=== PATIENT | male | born 1990 | race Caucasian/White ===

== ENCOUNTER 2021-04-17 21:48 | Emergency (ER) | payer OTHER, SELFPAY ==
--- NOTE | ~2021-04-17 | CT_ITS ---
EXAMINATION: CT ABDOMEN AND PELVIS WITHOUT CONTRAST CLINICAL INFORMATION: Left flank pain, question stone COMPARISON: 03/10/2017 TECHNIQUE: Multidetector volumetric imaging was performed from the superior aspect of the liver through the pubic symphysis. Sagittal and coronal reformatted images were obtained on the technologist's workstation. This CT examination was performed using dose optimization techniques as appropriate, variously including the following: *Automated exposure control *Adjustment of mA and/or kV according to patient size (this includes techniques or standardized protocols for targeted exams where dose is matched to indication/reason for exam; i.e. extremities or head) *Use of iterative reconstruction technique DLP: 366 mGy-cm FINDINGS: LUNG BASES: The visualized lung bases are unremarkable. LIVER, GALLBLADDER, AND BILIARY TREE: The liver is normal in size, shape, and attenuation. No focal hepatic lesion or biliary ductal dilatation is present. The gallbladder is unremarkable with no evidence of radiopaque gallstones, gallbladder wall thickening, or obvious pericholecystic inflammatory changes. PANCREAS: Unremarkable. SPLEEN: Unremarkable. ADRENAL GLANDS: Unremarkable. KIDNEYS AND URETERS: The kidneys are normal in size, shape, and attenuation. Left extrarenal pelvis is noted. No significant hydronephrosis. No obstructing calculi seen. No perinephric stranding. BLADDER: Unremarkable. GASTROINTESTINAL TRACT: No evidence of bowel obstruction or significant wall thickening. The appendix is unremarkable. No free fluid or free air is seen. ABDOMINAL WALL: No significant hernia is appreciated. LYMPH NODES: No lymphadenopathy is seen, though assessment is limited in the absence of intravenous contrast. VASCULAR: Unremarkable. PELVIC VISCERA: Unremarkable. OSSEOUS STRUCTURES: Unremarkable. CT/CT abdomen pelvis wo con IMPRESSION: No acute findings identified in the abdomen/pelvis. No obstructing calculus identified. Fleischner guidelines were followed.
[2021-04-17 21:55] VITALS: BP 156/85; PULSE 106; RESP 22; TEMP 36.7; O2SAT 99; BMI 25.0
--- NOTE | 2021-04-17 23:03 | ED_ITS ---
HPI - Back Pain/Injury General Chief Complaint: Back Pain/Injury Stated Complaint: flank pain Time Seen by Provider: 04/17/21 23:03 Source: patient Mode of arrival: ambulatory Limitations: no limitations History of Present Illness HPI Narrative: Patient diabetic with history of chronic back pain and abdominal pain comes here for increased pain for last 2 days patient in the left flank no fever no chills noticed blood sugar was on the higher side around 300 nauseated no vomiting no fever or chills no hematuria patient denies any substance abuse Related Data Allergies Allergy/AdvReac Type Severity Reaction Status Date / Time No Known Allergies Allergy Verified 04/17/21 21:55 Review of Systems Review of Systems: Yes all other systems are reviewed and are negative [facility] Social History Social History Advance Directives: No Advance Directives Information Provided: Yes Physical Exam Vital Signs: Vital Signs: Last Vital Signs Temp 98 F 04/18/21 01:12 Pulse 76 04/18/21 01:12 Resp 18 04/18/21 01:12 BP 140/82 H 04/18/21 01:12 Pulse Ox 97 04/18/21 01:12 BMI result Body Mass Index 25.0 Appearance: Alert. Oriented X3. In moderate distress anxious Eyes: No pallor/ icterus ENT: Pharynx normal. Oral Mucosa moist Neck: Normal inspection. Neck supple. CVS: Normal heart rate and rhythm. Pulses normal. Respiratory: No respiratory distress. Equal air entry bilateral, no wheezing/ rales/rhonchi Abdomen: Soft and nontender. Bowel sounds are present, diffuse tenderness left flank tenderness+ no rebound tenderness or guarding Skin: Skin warm and dry. Normal skin color. Normal skin turgor. Extremities: No lower extremity edema. No calf tenderness Neuro: Oriented X 3. MDM - Back Pain/Injury MDM Narrative Medical decision making narrative: Patient with chronic abdominal pain likely from gastroparesis diabetes along with he follows a kidney specialist details not available creatinine was elevated patient was given IV fluids CT scan was negative no ketoacidosis patient advised to follow with data analysis intern next week and advised to drink plenty of fluids and time of discharge patient feeling much better Lab Data Attestation: I reviewed the patient's lab results. Result diagrams: 04/18/21 00:42 04/18/21 00:42 Labs: Lab Results 04/18/21 04/18/21 04/18/21 Range/Units 00:37 00:37 00:42 WBC 8.1 (4.8-10.8) X10*3/uL RBC 4.00 L (4.60-5.80) X10*6/uL Hgb 11.4 L (14.0-18.0) g/dl Hct 34.4 L (42.0-52.0) % MCV 86.0 (80.0-98.0) fL MCH 28.5 (27.0-33.0) pg MCHC 33.1 (31.0-36.0) g/dl RDW 13.2 (11.0-16.0) % Plt Count 202 (160-400) X10*3/uL MPV 10.1 (9.4-12.4) fL Immature Gran % (Auto) 0.2 (0.0-0.4) % Neut % (Auto) 73.3 H (45-73) % Lymph % (Auto) 20.6 (20-40) % [place] % (Auto) 5.5 (2-11) % Eos % (Auto) 0.2 (0-4) % Baso % (Auto) 0.2 (0-2) % Lymph # (Auto) 1.7 (1.2-4.9) X10*3/uL [place] # (Auto) 0.5 (0.1-1.2) X10*3/uL Eos # (Auto) 0.0 (0.0-0.4) X10*3/uL Baso # (Auto) 0.0 (0.0-0.2) X10*3/uL Abs Immat Gran (auto) 0.02 (0.00-0.03) X10*3/uL Absolute Neuts (auto) 5.9 (2.0-8.3) x10*3/uL Absolute Nucleated RBC 0.000 (0.0-0.012) X10*3/uL Nucleated RBC % (auto) 0.0 (0.0-0.2) /100WBC Sodium (135-145) mmol/L Potassium (3.3-5.1) mmol/L Chloride (96-108) mmol/L Carbon Dioxide (22-29) mmol/L Anion Gap (12-20) BUN (9-16) mg/dL Creatinine (0.5-1.4) mg/dL Estim Creat Clear Calc Estimated GFR Random Glucose (60-115) mg/dL Calcium (8.4-10.2) mg/dL Total Bilirubin (0.0-1.0) mg/dL AST (5-37) U/L ALT (0-40) U/L Alkaline Phosphatase (39-117) U/L Total Protein (6.5-8.0) g/dL Albumin (3.5-5.0) g/dL Lipase (8-78) U/L Urine Color YELLOW Urine Appearance CLEAR Urine pH 5.5 (5.0-8.0) Ur Specific [place] >= 1.030 H (1.005-1.025) Urine Protein 2+ H (NEG-TRACE) MG/DL Urine Glucose (UA) >=1000 H (NEG) MG/DL Urine Ketones 15 (NEG) MG/DL Urine Blood 2+ H (NEG) Urine Nitrite NEG (NEG) Ur Leukocyte Esterase NEG (NEG) Urine RBC 1-4 (0) /HPF Urine WBC 1-4 (0-4) /HPF Ur Squamous Epith Cells 2+ /LPF Amorphous Sediment 1+ /LPF Urine Bacteria TRACE /LPF Urine Mucus 2+ /LPF Urine Opiates Screen POSITIVE H (Not Detect) Urine Fentanyl Screen Not Detected (Not Detect) Ur Barbiturates Screen Not Detected (Not Detect) Ur Phencyclidine Scrn Not Detected (Not Detect) Ur Amphetamines Screen Not Detected (Not Detect) U Benzodiazepines Scrn Not Detected (Not Detect) Urine Cocaine Screen Not Detected (Not Detect) U Marijuana (THC) Screen POSITIVE H (Not Detect) Acetone, Qual (Negative) 04/18/21 Range/Units 00:42 WBC (4.8-10.8) X10*3/uL RBC (4.60-5.80) X10*6/uL Hgb (14.0-18.0) g/dl Hct (42.0-52.0) % MCV (80.0-98.0) fL MCH (27.0-33.0) pg MCHC (31.0-36.0) g/dl RDW (11.0-16.0) % Plt Count (160-400) X10*3/uL MPV (9.4-12.4) fL Immature Gran % (Auto) (0.0-0.4) % Neut % (Auto) (45-73) % Lymph % (Auto) (20-40) % [place] % (Auto) (2-11) % Eos % (Auto) (0-4) % Baso % (Auto) (0-2) % Lymph # (Auto) (1.2-4.9) X10*3/uL [place] # (Auto) (0.1-1.2) X10*3/uL Eos # (Auto) (0.0-0.4) X10*3/uL Baso # (Auto) (0.0-0.2) X10*3/uL Abs Immat Gran (auto) (0.00-0.03) X10*3/uL Absolute Neuts (auto) (2.0-8.3) x10*3/uL Absolute Nucleated RBC (0.0-0.012) X10*3/uL Nucleated RBC % (auto) (0.0-0.2) /100WBC Sodium 140 (135-145) mmol/L Potassium 3.6 (3.3-5.1) mmol/L Chloride 103 (96-108) mmol/L Carbon Dioxide 26 (22-29) mmol/L Anion Gap 15 (12-20) BUN 24 H (9-16) mg/dL Creatinine 1.80 H (0.5-1.4) mg/dL Estim Creat Clear Calc 52.6 Estimated GFR 45 Random Glucose 142 H (60-115) mg/dL Calcium 9.5 (8.4-10.2) mg/dL Total Bilirubin 0.4 (0.0-1.0) mg/dL AST 19 (5-37) U/L ALT 14 (0-40) U/L Alkaline Phosphatase 99 (39-117) U/L Total Protein 7.3 (6.5-8.0) g/dL Albumin 4.3 (3.5-5.0) g/dL Lipase 12 (8-78) U/L Urine Color Urine Appearance Urine pH (5.0-8.0) Ur Specific [place] (1.005-1.025) Urine Protein (NEG-TRACE) MG/DL Urine Glucose (UA) (NEG) MG/DL Urine Ketones (NEG) MG/DL Urine Blood (NEG) Urine Nitrite (NEG) Ur Leukocyte Esterase (NEG) Urine RBC (0) /HPF Urine WBC (0-4) /HPF Ur Squamous Epith Cells /LPF Amorphous Sediment /LPF Urine Bacteria /LPF Urine Mucus /LPF Urine Opiates Screen (Not Detect) Urine Fentanyl Screen (Not Detect) Ur Barbiturates Screen (Not Detect) Ur Phencyclidine Scrn (Not Detect) Ur Amphetamines Screen (Not Detect) U Benzodiazepines Scrn (Not Detect) Urine Cocaine Screen (Not Detect) U Marijuana (THC) Screen (Not Detect) Acetone, Qual Negative (Negative) Discharge Plan Discharge Clinical Impression: Abdominal pain, chronic, generalized Acute on chronic kidney failure Qualifiers: Acute renal failure type: unspecified Chronic kidney disease stage: stage 3 (moderate) Chronic kidney disease stage 3 subtype: stage 3a (GFR 45-59) Qualified Code(s): N17.9 - Acute kidney failure, unspecified Patient Disposition: Home, Self-Care Instructions: Chronic Kidney Disease (ED), Abdominal Pain (ED) Additional Instructions: Drink plenty of fluids See kidney specialist next week for follow-up as your kidneys are weak
[2021-04-17] MEDS: Ketorolac Tromethamine 30 MG/ML VIAL IVPUSH (23:35)
[2021-04-17] MEDS: ondansetron HCL 4 MG/2 ML VIAL IVPUSH (23:35)
[2021-04-17] MEDS: Morphine Sulfate 4 MG/ML CARTRIDGE IVPUSH (23:35)
[2021-04-17] MEDS: 0.9 % Sodium Chloride 1,000 ML 999 ML IVCONT (23:36)
[2021-04-18 00:12] VITALS: BP 144/79; PULSE 86; RESP 18; TEMP 36.6; O2SAT 98
[2021-04-18 00:51] LABS: Basophils Percent Auto 0.2 % (0-2); Eosinophils Percent Auto 0.2 % (0-4); Hematocrit 34.4 % (42.0-52.0); Hemoglobin 11.4 g/dl (14.0-18.0); Imm Gran Abs Auto 0.02 X10*3/uL (0.00-0.03); Imm Gran Pct Auto 0.2 % (0.0-0.4); Lymphocytes Absolute Auto 1.7 X10*3/uL (1.2-4.9); Lymphocytes Percent Auto 20.6 % (20-40); MANUAL DIFF FLAG NO; Mean Corpuscular HGB Conc 33.1 g/dl (31.0-36.0); Mean Corpuscular Hemoglobin 28.5 pg (27.0-33.0); Mean Platelet Volume 10.1 fL (9.4-12.4); Monocytes Absolute Auto 0.5 X10*3/uL (0.1-1.2); Monocytes Percent Auto 5.5 % (2-11); Neutrophils Absolute Auto 5.9 x10*3/uL (2.0-8.3); Neutrophils Percent Auto 73.3 % (45-73); Platelet Count 202 X10*3/uL (160-400); Red Cell Distribution Width 13.2 % (11.0-16.0); White Blood Count 8.1 X10*3/uL (4.8-10.8)
[2021-04-18 00:52] LABS: Appearance Urine CLEAR; Color Urine YELLOW; Glucose Urine UA >=1000 MG/DL (NEG); Leukocyte Esterase Urine NEG (NEG); Nitrite Urine NEG (NEG); PH 5.5 (5.0-8.0); Specific Gravity - Urine >= 1.030 (1.005-1.025); UACC Culture Trigger NO; Urine Blood 2+ (NEG); Urine Ketones 15 MG/DL (NEG); Urine Protein 2+ MG/DL (NEG-TRACE)
[2021-04-18 00:54] VITALS: RESP 16
[2021-04-18 00:59] LABS: Acetone, serum QL Negative (Negative)
[2021-04-18 01:01] LABS: Amphetamine Screen Urine Not Detected (Not Detect); Barbiturates, Urine Not Detected (Not Detect); Benzodiazepines Screen Urine Not Detected (Not Detect); Cannabinoid Screen Urine POSITIVE (Not Detect); Cocaine Screen Urine Not Detected (Not Detect); Fentanyl, urine Not Detected (Not Detect); Opiate Screen Urine POSITIVE (Not Detect); Phencyclidine Screen Urine Not Detected (Not Detect)
[2021-04-18 01:03] LABS: Amorphous Sediment Urine 1+ /LPF; Bacteria Urine TRACE /LPF; Mucus Urine 2+ /LPF; Squamous Epithelial Cell Urine 2+ /LPF
[2021-04-18 01:09] LABS: Alanine Aminotransferase 14 U/L (0-40); Albumin Level 4.3 g/dL (3.5-5.0); Alkaline Phosphatase 99 U/L (39-117); Anion Gap 15 (12-20); Aspartate Amino Transferase 19 U/L (5-37); Bilirubin Total 0.4 mg/dL (0.0-1.0); Blood Urea Nitrogen 24 mg/dL (9-16); Calcium 9.5 mg/dL (8.4-10.2); Carbon Dioxide 26 mmol/L (22-29); Chloride 103 mmol/L (96-108); Creatinine Clr Calc Pharmacy 52.6; Estimated Glomerular Filt Rate 45; Glucose Random 142 mg/dL (60-115); Lipase 12 U/L (8-78); Potassium 3.6 mmol/L (3.3-5.1); Sodium 140 mmol/L (135-145); Total Protein 7.3 g/dL (6.5-8.0)
[2021-04-18 01:12] VITALS: BP 140/82; PULSE 76; RESP 18; TEMP 36.6; O2SAT 97
== END 2021-04-18 01:27 | disposition home or self-care (01) ==
PROVIDERS: Emergency Provider Internal Medicine; PCP Internal Medicine
DX: N17.9 Acute kidney failure, unspecified (principal); G89.29 Other chronic pain; R10.84 Generalized abdominal pain; F11.90 Opioid use, unspecified, uncomplicated; F12.90 Cannabis use, unspecified, uncomplicated
CPT/HCPCS: 36415; 74176; 80053; 80307; 81001; 82009; 83690; 85025; 96361; 96374; 96375; 99284; J1885; J2270; J2405

== ENCOUNTER 2025-01-07 08:35 | Emergency (ER) | payer OTHER, SELFPAY ==
--- NOTE | ~2025-01-07 | CT_ITS ---
EXAMINATION: CT ABDOMEN AND PELVIS WITHOUT CONTRAST CLINICAL INFORMATION: Left flank pain. COMPARISON: April 17, 2021. TECHNIQUE: Multidetector volumetric imaging was performed from the superior aspect of the liver through the pubic symphysis. Sagittal and coronal reformatted images were obtained on the technologist's workstation. This CT examination was performed using dose optimization techniques as appropriate, variously including the following: *Automated exposure control *Adjustment of mA and/or kV according to patient size (this includes techniques or standardized protocols for targeted exams where dose is matched to indication/reason for exam; i.e. extremities or head) *Use of iterative reconstruction technique. DLP: 328 mGy centimeter. FINDINGS: Inadequate evaluation of the intra-abdominal organs and vascular structures due to lack of IV contrast. LUNG BASES: Patchy groundglass. LIVER, GALLBLADDER, AND BILIARY TREE: Liver measures 17 cm. Gallbladder is nondistended. No pericholecystic fluid collection or gallbladder wall thickening. No gross intrahepatic or extrahepatic biliary ductal dilatation. PANCREAS: No peripancreatic fluid collection. No main pancreatic ductal dilatation. SPLEEN: 9 cm. ADRENAL GLANDS: No nodular lesions. KIDNEYS AND URETERS: No hydronephrosis. No nephrolithiasis. Ureters are not dilated. BLADDER: Fluid-filled nearly collapsed. GASTROINTESTINAL TRACT: Appendix is normal. No intestinal obstruction pattern. No pneumatosis intestinalis. Abundant stool. No ascites. No pneumoperitoneum. ABDOMINAL WALL: No gross umbilical hernia. LYMPH NODES: No specific prominent inguinal mesenteric and retroperitoneum. VASCULAR: No aneurysm, abdominal aorta. No gross calcified plaques. PELVIC VISCERA: Limited evaluation. 5 cm prostate gland. OSSEOUS STRUCTURES: No acute fracture or listhesis. Levoconvex curvature apex at L2-3. Sclerosis and the sacroiliac joints. Mild degenerative changes in the coxofemoral joints. No lytic or blastic lesions. CT/CT abdomen pelvis wo IV con IMPRESSION: No hydronephrosis or nephrolithiasis. Abundant stool without intestinal obstruction pattern. Mild enterocolitis cannot be excluded. Hepatomegaly, mild. Fleischner guidelines were followed. Electronically signed by: Venkatesh Ware MD 01/07/2025 11:43 AM EDT
[2025-01-07 08:38] VITALS: BP 283/148; PULSE 99; RESP 18; TEMP 36.8; O2SAT 99; BMI 24.1
--- NOTE | 2025-01-07 09:06 | ED_ITS ---
HPI - General Adult General Chief complaint: Back Pain/Injury Stated complaint: Kidney failure Time Seen by Provider: 01/07/25 08:58 Source: patient and RN notes reviewed Mode of arrival: ambulatory Limitations: no limitations History of Present Illness ED Provider: Mayra Artis PA-C HPI narrative: This is a 34-year-old male, with a past medical history of chronic left flank pain often times seen at [facility] with negative workups for IV pain medication, end-stage renal disease on dialysis (M/W/F) sees Dr. Brown, diabetes type 1, and klinefelter's syndrome, who presents emergency department with acute onset of left-sided flank pain since this morning. Patient reports that upon wakening he developed severe left-sided flank pain. On initial arrival, unable to obtain appropriate HPI secondary to his pain, he has jumping up and down, moaning in pain. Upon reassessment after receiving IM Dilaudid, he states that he has had this pain on and off for the last 5 years. He states that his mother believes it is attributed to his marijuana use however states that he does not think that this is the case. He last received dialysis yesterday. He is compliant on his dialysis scheduled regimen. He denies any fevers, chills, chest pain, shortness of breath, abdominal pain, nausea, vomiting or diarrhea. MD complaint: Left flank pain Related Data Allergies Allergy/AdvReac Type Severity Reaction Status Date / Time No Known Allergies Allergy Verified 01/07/25 08:42 Review of Systems 2 Review of Systems: Yes all other systems are reviewed and are negative Constitutional: Constitutional: Reports as per HPI Physical Exam ED Vital Signs: Vital Signs - 24 hr 01/07/25 08:38 01/07/25 10:25 01/07/25 12:07 Temperature 98.2 F 98.1 F 98.1 F Pulse Rate 99 72 73 Respiratory Rate 18 16 16 Blood Pressure 283/148 H 189/104 H 165/86 H Pulse Oximetry 99 95 93 Oxygen Delivery Method Room Air Room Air Room Air 01/07/25 12:58 Temperature 98.1 F Pulse Rate 73 Respiratory Rate 16 Blood Pressure 165/86 H Pulse Oximetry 93 Oxygen Delivery Method Room Air BMI result Body Mass Index 24.1 Const General: cooperative, comfortable and no acute distress Orientation/consciousness: patient oriented x3 Limitations: no limitations HENMT Head: Yes normal to inspection, Yes normocephalic and Yes atraumatic Ears: hearing grossly normal bilaterally General nose exam: Normal external nose present Face and sinus: Yes normal facial exam Mouth: Normal oral and palatal mucosa present, oropharynx normal and moist mucous membranes Throat: Yes posterior oropharynx normal Eyes General: appearance normal, both eyes and all related structures Eyelids: Yes eyelids normal Conjunctivae: conjunctivae normal Sclerae: sclerae normal Pupils: Equal, round and reactive pupils present EOM: EOMs intact bilaterally Neck Neck: Yes normal visual inspection, Yes full ROM and Yes no lymphadenopathy Lymphatic: no lymphadenopathy noted Chest Chest palpation & inspection: normal inspection of the chest Resp Effort & Inspection: normal respiratory effort and able to speak in complete sentences Auscultation: clear to auscultation bilaterally, no crackles, no rales, no rhonchi and no wheezes Cardio Rate: regular rate Rhythm: regular rhythm Heart sounds: S1 normal heart sound present and S2 normal heart sound present GI Other: Abdomen is soft, nontender, nondistended Inspection: Yes normal to inspection Other: Left-sided CVA tenderness on examination Skin General skin exam: no rashes or lesions noted Trauma: no lacerations or abrasions Wounds: no wounds Neuro General: patient oriented x3 and moves all extremities Cranial nerves: Yes Equal, round and reactive pupils present Extrem General: Yes normal to inspection Right upper extremity: normal to inspection Left upper extremity: normal to inspection Right lower extremity: normal to inspection Left lower extremity: normal to inspection Medications Administered Discontinued Medications Generic Name Dose Route Start Last Admin Trade Name Freq PRN Reason Stop Dose Admin Hydromorphone HCl 2 mg 01/07/25 09:02 01/07/25 09:12 Hydromorphone Hcl 2 Mg/Ml Vial IM 01/07/25 09:03 2 mg ONCE ONE Administration Protocol Ondansetron HCl 4 mg 01/07/25 09:50 01/07/25 11:00 Ondansetron Hcl 4 Mg/2 Ml Vial IVPUSH 01/07/25 09:51 Not Given ONCE ONE Medical Decision Making Medical Decision Making [facility] Narrative: This is a 34-year-old male, with a past medical history of chronic left flank pain often times seen at [facility] with negative workups for IV pain medication, end-stage renal disease on dialysis (M/W/F) sees Dr. Brown, diabetes type 1, and klinefelter's syndrome, who presents emergency department with acute onset of left-sided flank pain since this morning. On arrival, patient very hypertensive at 283/148 however patient had this blood pressure taken while patient was pacing the room, screaming in pain, this is unlikely accurate. Patient with tenderness palpation along the left flank. Unable to get a appropriate history physical from patient secondary to acute pain therefore Dilaudid 2 mg IM ordered. Will obtain labs, CT abdomen and pelvis to rule out pyelonephritis, obstructive pathology, renal colic, musculoskeletal pain. Plan: Labs, CT, EKG, Pain medication, reassess. >> patient often times goes to [facility], I reviewed his record, patient was recently seen on December 31, 2024 with the exact presentation. He had dialysis the day prior and presented with excruciating pain, writhing around on stretcher, screaming in pain, rubbing left flank. He also was found to be hypertensive, systolic early in the 200s. Patient was also seen several weeks prior to that, had an extensive workup including CT scan, and CT angio that was negative for any acute pathology. On December 31, 2024, he had a normal CAT scan, and felt better after receiving IV Dilaudid. >> CT revealing no acute findings. Overall workup was reassuring. Creatinine is 8, with an elevated BUN at 41. Appears to be at his baseline, creatinine at [facility] several days ago was 7.9. He is compliant with his dialysis. Lipase is elevated at 352, he has no left upper quadrant pain, and this does not fit the clinical picture. I discussed this with my attending physician, Dr. Toussaint. Patient is feeling much better, and would like to be discharged. Patient given strict return precautions. He will follow-up with his kidney specialist. Patient stable for discharge. Differential Diagnosis Differential Diagnoses: The differential diagnosis associated with the presentation includes See above Lab Data [facility] Lab Attestation statement: I reviewed the patient's lab results. See [facility] and course 01/07/25 10:13 01/07/25 10:13 Labs: Lab Results 01/07/25 Range/Units 10:13 WBC 8.7 (4.8-10.8) X10*3/uL RBC 3.45 L (4.60-5.80) X10*6/uL Hgb 10.4 L (14.0-18.0) g/dl Hct 32.3 L (42.0-52.0) % MCV 93.6 (80.0-98.0) fL MCH 30.1 (27.0-33.0) pg MCHC 32.2 (31.0-36.0) g/dl RDW 17.3 H (11.0-16.0) % Plt Count 158 L (160-400) X10*3/uL MPV 10.3 (9.4-12.4) fL Immature Gran % (Auto) 0.3 (0.0-0.4) % Neut % (Auto) 85.1 H (45-73) % Lymph % (Auto) 10.0 L (20-40) % [place] % (Auto) 3.7 (2-11) % Eos % (Auto) 0.3 (0-4) % Baso % (Auto) 0.6 (0-2) % Lymph # (Auto) 0.9 L (1.2-4.9) X10*3/uL [place] # (Auto) 0.3 (0.1-1.2) X10*3/uL Eos # (Auto) 0.0 (0.0-0.4) X10*3/uL Baso # (Auto) 0.1 (0.0-0.2) X10*3/uL Abs Immat Gran (auto) 0.03 (0.00-0.03) X10*3/uL Absolute Neuts (auto) 7.4 (2.0-8.3) x10*3/uL Absolute Nucleated RBC 0.000 (0.0-0.012) X10*3/uL Nucleated RBC % (auto) 0.0 (0.0-0.2) /100WBC Sodium 146 H (135-145) mmol/L Potassium 4.1 (3.3-5.1) mmol/L Chloride 98 (96-108) mmol/L Carbon Dioxide 30 H (22-29) mmol/L Anion Gap 22 H (12-20) BUN 41 H (9-16) mg/dL Creatinine 8.00 H* (0.5-1.4) mg/dL Estim Creat Clear Calc 11.5 Estimated GFR 8 Random Glucose 175 H (60-115) mg/dL Calcium 9.3 (8.4-10.2) mg/dL Magnesium 2.2 (1.6-2.6) mg/dL Total Bilirubin 0.7 (0.0-1.0) mg/dL Direct Bilirubin 0.3 (0.0-0.5) mg/dL AST 37 (5-37) U/L ALT 34 (0-40) U/L Alkaline Phosphatase 211 H (39-117) U/L Total Protein 8.6 H (6.5-8.0) g/dL Albumin 4.9 (3.5-5.0) g/dL Lipase 352 H (8-78) U/L Ethyl Alcohol < 10 mg/dL Independent Interpretation I performed an independent interpretation of an: EKG Interpretation: EKG normal sinus rhythm at a ventricular rate of 79 beats per minute, no STEMI Radiology Impression Discussion of test interpretation with radiology: I have reviewed the radiologist's reading. Radiologist Impression: FINDINGS: Inadequate evaluation of the intra-abdominal organs and vascular structures due to lack of IV contrast. LUNG BASES: Patchy groundglass. LIVER, GALLBLADDER, AND BILIARY TREE: Liver measures 17 cm. Gallbladder is nondistended. No pericholecystic fluid collection or gallbladder wall thickening. No gross intrahepatic or extrahepatic biliary ductal dilatation. PANCREAS: No peripancreatic fluid collection. No main pancreatic ductal dilatation. SPLEEN: 9 cm. ADRENAL GLANDS: No nodular lesions. KIDNEYS AND URETERS: No hydronephrosis. No nephrolithiasis. Ureters are not dilated. BLADDER: Fluid-filled nearly collapsed. GASTROINTESTINAL TRACT: Appendix is normal. No intestinal obstruction pattern. No pneumatosis intestinalis. Abundant stool. No ascites. No pneumoperitoneum. ABDOMINAL WALL: No gross umbilical hernia. LYMPH NODES: No specific prominent inguinal mesenteric and retroperitoneum. VASCULAR: No aneurysm, abdominal aorta. No gross calcified plaques. PELVIC VISCERA: Limited evaluation. 5 cm prostate gland. OSSEOUS STRUCTURES: No acute fracture or listhesis. Levoconvex curvature apex at L2-3. Sclerosis and the sacroiliac joints. Mild degenerative changes in the coxofemoral joints. No lytic or blastic lesions. CT/CT abdomen pelvis wo IV con IMPRESSION: No hydronephrosis or nephrolithiasis. Abundant stool without intestinal obstruction pattern. Mild enterocolitis cannot be excluded. Hepatomegaly, mild. Fleischner guidelines were followed. Electronically signed by: Venkatesh Ware MD 01/07/2025 11:43 AM EDT RP Dictated By: Venkatesh Zamora MD External Record Review External record reviewed: Outside ED record Review of [facility] ER notes, see HPI and MDM Discharge Plan Discharge Clinical Impression: Acute left flank pain Patient Disposition: Home, Self-Care Instructions: Flank Pain (ED) Additional Instructions: You were seen in the ER due to flank pain. Your CT does not show any abnormalities - although you do have some stool. Please avoid marijuana use as this can cause abdominal pain, nausea, vomiting. Your overall workup today is re-assuring. You need to follow up with your kidney specialist. If any new or worsening symptoms occur, please seek emergent care. Interventions: ED Discharge Assessment Last Done: 01/07/25 12:58 Discharge Date/Time: 01/07/25 12:59 Print Language: Hebrew
--- NOTE | 2025-01-07 09:08 | ECG_ITS ---
Test Reason : ABD PAIN Blood Pressure : */* mmHG Vent. Rate : 79 BPM Atrial Rate : 79 BPM P-R Int : 124 ms QRS Dur : 98 ms QT Int : 396 ms P-R-T Axes : 52 43 73 degrees QTcB Int : 454 ms Normal sinus rhythm Possible Left atrial enlargement Nonspecific ST abnormality Abnormal ECG No previous ECGs available Referred By: aMyra Artis Electronically Signed By: Johnny Smyth
--- NOTE | 2025-01-07 09:08 | PC.NURSE ---
attempted IV x3 with kiln charger patient unable to stay still to tolerate IV
--- NOTE | 2025-01-07 09:13 | PC.NURSE ---
patient presents to the ED with abd/flank pain. patient states it started this morning pain 10/10. patient not vomiting but spitting in emesis bag. patient unable to stay still. medicated per JUL. patient noted to be in room putting fingers in throat.
--- NOTE | 2025-01-07 09:28 | MHC.EDTECH ---
Patient reports pain 10/10, unable to complete EKG and Blood Work, JULISA Stapleton aware.
--- OUTSIDE RECORDS SUMMARY | 2025-01-07 10:17 | XMS_ITS ---
Author Name [facility] Organization Unknown Care Team Organization Name Specialty Phone Email Start Date End Da te [facility] NABOR ALVAREZ Primary Care 2022 4
--- OUTSIDE RECORDS SUMMARY | 2025-01-07 10:17 | XMS_ITS | Encounter Summary ---
Author Organization [facility] Address [address] [place] [id number] Phone Care Team Providers Care Supervisor Stripping Name Role Phone Selvin Bojorquez MD Primary Care Provider [phone] Encounter Details Date Type Department Care Team (Late st Contact Info) Description 03/08/2012 Documentation EM Family Medicine [address] [place], [place] [id number] Family Medicine, Physician [address] [place] [address] Social History Tobacco Use Types Packs/Day Years Used Date Smoking Tobacco: Never Assessed Sex and Gender Information Value Date Recorded Sex Assigned at Not on file Legal Sex Male 4:51 PM EDT Gender Identity Not on file Sexual Orientation Not on file documented as of this encounter Plan of Treatment Not on file documented as of this encounter Visit Diagnoses Not on filedocumented in this encounter Care Teams Supervisor Stripping Relationship Specialty Start Date End Date Selvin Bojorquez MD [address] [place] [address] [place] [address] PCP - General 12/16/16 10/12/22 documented as of this encounter
--- OUTSIDE RECORDS SUMMARY | 2025-01-07 10:17 | XMS_ITS | Encounter Summary ---
Author Organization [facility] Address [address] [place] [phone] Phone Care Team Providers Care Tinner Helper Name Role Phone Selvin Bojorquez MD Primary Care Provider [phone] Encounter Details Date Type Department Care Team (Late st Contact Info) Description 05/09/2013 Documentation EM Family Medicine [address] [place], [place] [phone] Family Medicine, Physician [address] [place] [address] Social History Tobacco Use Types Packs/Day Years [...] on filedocumented in this encounter Care Teams Tinner Helper Relationship Specialty Start Date End Date Selvin Bojorquez MD [address] [place] [address] [place] [address] PCP - General 12/16/16 10/12/22 documented as of this encounter
--- OUTSIDE RECORDS SUMMARY | 2025-01-07 10:17 | XMS_ITS | Encounter Summary ---
Author Organization [facility] Address [address] [place] [phone] Phone Care Team Providers Care Air Quality Chemist Name Role Phone Selvin Bojorquez MD Primary Care Provider [phone] Encounter Details Date Type Department Care Team (Late st Contact Info) Description 09/21/2011 Documentation EM Family Medicine [address] [place], [place] [phone] Family Medicine, Physician [address] [place] [address] Social History Tobacco Use Types Packs/Day Years [...] on filedocumented in this encounter Care Teams Air Quality Chemist Relationship Specialty Start Date End Date Selvin Bojorquez MD [address] [place] [address] [place] [address] PCP - General 12/16/16 10/12/22 documented as of this encounter
--- OUTSIDE RECORDS SUMMARY | 2025-01-07 10:17 | XMS_ITS | Encounter Summary ---
Author Organization [facility] Address [address] [place] [phone] Phone Care Team Providers Care Public Welfare Director Name Role Phone Selvin Bojorquez MD Primary Care Provider [phone] Encounter Details Date Type Department Care Team (Late st Contact Info) Description 01/04/2013 Documentation EM Family Medicine [address] [place], [place] [id number] Family Medicine, Physician [address] [place] [address] Social History Tobacco Use Types Packs/Day Years [...] on filedocumented in this encounter Care Teams Public Welfare Director Relationship Specialty Start Date End Date Selvin Bojorquez MD [address] [place] [address] [place] [id number] PCP - General 12/16/16 10/12/22 documented as of this encounter
--- OUTSIDE RECORDS SUMMARY | 2025-01-07 10:17 | XMS_ITS | Encounter Summary ---
Author Organization [facility] Address [address] [address] Phone Care Team Providers Care Hydraulic Engineer Name Role Phone Jesus Daniel MD Primary Care Provider [phone] Reason for Visit * Reason Comments Med Refill Encounter Details Date Type Department Care Team ([facility] st Contact Info) Description 01/06/2025 Refill [facility] [address] [phone] Saeed Silverio MD [address] [phone] Social History Tobacco Use Types Packs/Day Years Used Date Smoking Tobacco: Every Day Cigarettes Passive Smoke Exposure: Never Smokeless Tobacco: Never Alcohol Use Standard Drinks/Week Comments Never 0 (1 standard drink = 0.6 oz pur e alcohol) Sex and Gender Information Value Date Recorded Sex Assigned at Not on file Legal Sex Male 5:25 PM EST Gender Identity Not on file Sexual Orientation Not on file documented as of this encounter Plan of Treatment Not on file documented as of this encounter Visit Diagnoses Not on filedocumented in this encounter Care Teams Hydraulic Engineer Relationship Specialty Start Date End Date Jesus Daniel MD [address] [place] [phone] PCP - General Internal Medicine 08/14/23 documented as of this encounter
--- OUTSIDE RECORDS SUMMARY | 2025-01-07 10:17 | XMS_ITS | Clinical Summary ---
Author Organization [facility] Address [address] [place] [address] Phone Care Team Providers Care Child Care Aide Name Role Phone Jesus Daniel MD Primary Care Provider [phone] Allergies No known active allergies Medications hydrOXYzine HCL (ATARAX) 50 mg tablet TAKE 1 TABLET BY MOUTH THREE TIMES A DAY NEEDED FOR ANXIETY 270 tablet 1 4 Active ARIPiprazole (ABILIFY) 15 mg tablet Take 1 tablet (15 mg total) by mouth 1 (one) time each day. 3 Active blood-glucose meter kit 1 Kit by Does not apply route daily. Use to check BS daily. 3 Active chlorproMAZINE (THORAZINE) 50 mg tablet TAKE 1 AND 1/2 TABLET BY MOUTH EVERY EVENING 3 Active blood-glucose meter,continuou s (Dexcom G7 Torch Cutter) misc 1 Device by Does not apply route See Admin Instructions. Use daily with dexcom g 7 sensors 4 Active FREESTYLE LANCETS MISC Use to check BS daily 3 Active insulin glargine (Lantus Solostar U-100 Insulin) 100 unit/mL (3 mL) injection pen Inject 15 Units into the skin daily. 4 Active insulin lispro 100 unit/mL injection Inject 2 Units as directed 3 times daily (with meals). 3 Active latanoprost (XALATAN) 0.005 % ophthalmic solution 0 Active pen needle, diabetic (Insupen Pen Needle) 32 gauge x needle 4 Sticks by Does not apply route 4 times daily. 3 Active safety needles (Aqinject Safety Needle) 18 gauge x 1 1/2 needle To draw Testosterone for IM injection every 2 weeks. 4 Active needle, disp, 21 G 21 gauge x 1 1/2 needle To inject Testosterone IM every 2 weeks 4 Active needle, disp, 22 G 22 gauge x 1 1/2 needle To inject testosterone IM every 2 weeks. 4 Active omeprazole (PriLOSEC) [address] capsule Take 1 capsule (20 mg total) by mouth 1 (one) time each day. 4 Active predniSONE (DELTASONE) 20 mg tablet Take 2 TAB by mouth once daily for 5 days. Take with food in the morning. 4 Active testosterone cypionate (DEPO-TESTOTERO NE) 200 mg/mL injection 4 Active cholecalciferol (VITAMIN D-3) 25 mcg (1,000 unit) capsule Take 2 capsules (2,000 Units total) by mouth 1 (one) time each day in the morning. 4 Active docusate sodium (COLACE) 100 mg capsule Take 1 capsule (100 mg total) by mouth. 4 Active dorzolamide-sandra oloL (COSOPT) 22.3-6.8 mg/mL ophthalmic solution Administer 1 drop into affected eye(s). 7 Active torsemide (DEMADEX) 20 mg tablet Take 3 tablets (60 mg total) by mouth 1 (one) time each day. 5 Active LORazepam (ATIVAN) 1 mg tablet Take one hour prior to dialysis 30 tablet 5 Active insulin glargine-yfgn 100 unit/mL injection INJECT 26 UNITS INTO THE SKIN AT BEDTIME 10 mL 5 5 Active Additional Information Patient not taking.Reported on 10/10/2024 rosuvastatin (CRESTOR) 5 mg tablet TAKE 1 TABLET BY MOUTH EVERY DAY 90 tablet 1 5 Active blood sugar diagnostic (FreeStyle Lite Strips) test strip TEST SUGARS 3 TIMES A DAY BEFORE MEALS 100 strip 5 5 Active blood-glucose sensor (Dexcom G7 Sensor) deviceIndicatio ns:Type 1 diabetes mellitus with chronic kidney disease on chronic dialysis ([facility] V24, [facility] V28) Box = Kit = EA, changes sensor every 10 days 3 each 11 5 Active ferrous sulfate 325 mg (65 mg elemental iron) tablet TAKE 1 TABLET BY MOUTH EVERY DAY WITH VITAMIN C 90 tablet 5 Active acetaminophen (TYLENOL 8 HOUR) 650 mg 8 hr tablet Take 1 tablet (650 mg total) by mouth every 8 (eight) hours if needed (pain). for pain 60 tablet 1 5 Active losartan (COZAAR) 100 mg tablet Take 1 tablet (100 mg total) by mouth 1 (one) time each day. Active NIFEdipine CC (ADALAT CC) 60 mg 24 hr tablet Take 1 tablet (60 mg total) by mouth. 5 Active brimonidine (ALPHAGAN) 0.2 % ophthalmic solution Administer 1 drop into both eyes 3 (three) times a day. Active chlorproMAZINE (THORAZINE) 25 mg tablet Take by mouth 3 (three) times a day. 75 meq daily Active bimatoprost (LUMIGAN) 0.01 % ophthalmic drops Administer 1 drop into both eyes 1 (one) time each day. Active sevelamer carbonate (RENVELA) 800 mg tablet Take 1 tablet (800 mg total) by mouth 3 (three) times a day with meals. Swallow tablet whole; do not crush, break, or chew. 2 po bid 1 tid Active calcium carbonate (TUMS) 500 mg (200 mg elemental calcium) chewable tablet Chew 1 tablet (500 mg total) 1 (one) time each day. Active diclofenac (VOLTAREN) 1 % topical gel Apply 2 g topically 4 (four) times a day. 30 g 1 5 Active pregabalin (LYRICA) 150 mg capsule Take one capsule one hour prior to dialysis, on Monday,weds,mond ay 30 capsule 1 5 Active Active Problems Problem Noted Date Diagnosed Date Type 1 diabetes mellitus wit h renal manifestations ([facility] V24, [facility] V28) 04/07/2024 Overview (04/07/2024): Uncontrolled Follows with [facility] endocrinology. Primary hypertension 04/22/2022 Hyperlipidemia 07/15/2021 CKD (chronic kidney disease) stage 3, GFR 30-59 ml/min ([facility] V24, [facility] V28) 12/26/2019 Anxiety 01/30/2018 Irritable bowel syndrome with constipation 10/03 Superior mesenteric artery syndrome ([facility] V24 ) 06/07/2017 Mild intellectual disability 04/10/2017 Diabetic gastroparesis ([facility] V24, [facility] V28 ) 03/23/2017 Mild chronic gastritis 03/23/2017 Marijuana abuse 2017 H. pylori infection 02/27/2017 Microalbuminuria 05/24/2016 Klinefelter syndrome 06/05/2014 Overview (04/07/2024): Diagnosis from [facility] endocrinology records Diabetic neuropathy ([facility] V24, [facility] V28) 1 06/13/2013 Encounters Date Type Department Care Team Description 11/07/2024 Nurse Triage Adult Medicine [address] [phone] Jesus Daniel MD 10/11/2024 Telephone Adult Medicine [address] [phone] Jesus Daniel MD 10/10/2024 3:00 PM EDT Office Visit Adult Medicine [address] [phone] Jesus Daniel MD Flank pain (Primary Dx); Acute pain of right knee; ESRD on dialysis ([facility] V24, [facility] V28); Type 1 diabetes mellitus with chronic kidney disease on chronic dialysis ([facility] V24, [facility] V28); Primary hypertension; Mild intellectual disability from Last 3 Months Immunizations Name Administration Dates Next Due COVID-19 (Moderna/Spikevax) 12yo and older 07/04 Influenza Quadravalent, MDCK , 0.5ml, preservative free (Flucelvax) 6mo and older 01/24/2023,05/12/2022 Influenza Quadravalent, MDCK , 0.5ml, with preservative (Flucelvax) 6mo and older 01/30/2018 Influenza trivalent, 0.5mL, preservative free (Fluarix; FluLaval; Fluzone) ages 6mo and older (Afluria) 3 years and older 03/08/2021,05/24/2016 PPD Test 06/13/2018,08/09/2017 Pfizer SARS-CoV-2 COVID-19, mRNA, LNP-S, preservative free 10/14/2020 Pneumococcal polysaccharide 23 valent (Pneumovax 23) 2yo and older 07/02/2018 Tdap Tetanus diptheria acell ular pertussis (Boostrix; Adacel) 7yo and older 05/24/2016 Surgical History Surgery Date Site/Laterality Comments OTHER SURGICAL HISTORY 03/17/2017 PROCEDURE: OUTSIDE ENDOSCOPY; COMMENT: retained food in the stomach, mild chronic gastritis OTHER SURGICAL HISTORY Left PROCEDURE: HISTORICAL GLAUCOMA Medical History Medical History Date Comments Diabetes type 1, uncontrolled DX :Diabetes type 1, uncontrolled Mental developmental delay DX:Me ntal developmental delay H. pylori infection 02/27/2017 DX:H. pylori infection Marijuana abuse 2017 DX:Marijuana abu se Diabetic gastroparesis ([facility] V24, [facility] V28) 03/23/2017 DX:Diabetic gastroparesis ([facility]) Mild chronic gastritis 03/23/2017 DX:Mild c hronic gastritis Superior mesenteric artery s yndrome ([facility] V24) 06/07/2017 DX:Superior mesenteric arter y syndrome (HCC) History of gastrostomy tube placement 07/03/2017 DX:History of gastrostomy tube placement; COMMENT: G-J tube placed by IR on 06/09/2017. Removed 10/03/2017. Anxiety 01/30/2018 DX:Anxiety Hyperlipidemia 07/15/2021 DX:Hyperlipidemi a Anemia DX:Anemia Family History Medical History Relation Name Comments Diabetes Father renal issues Diabetes Maternal Grandfather HTN, HL D Other: right knee cancer? Maternal Grandmother No Known Problems Mother Relation Name Status Comments Brother x 3 Alive Father Alive Maternal Grandfather Alive Maternal Grandmother Alive Mother Alive Paternal Grandfather Paternal Grandmother Sister x 1 Alive Social History Tobacco Use Types Packs/Day Years Used Date Smoking Tobacco: Former Cigarettes Smokeless Tobacco: Never Tobacco Cessation:Counseling Given: Not Answered Alcohol Use Standard Drinks/Week Comments No 0 (1 standard drink = 0.6 oz pur e alcohol) Housing Instability Answer Date Recorde d Are you worried that in the next 2 months you may not have stable housing? No 10/10/2024 Food Access & Nutrition Answer Date Rec orded Do you have access to a vari ety of food including fruits and vegetables? No 10/10/2024 Access to Healthcare Answer Date Record ed Within the last 3 months, ho w many times did you visit the emergency department for your medical care? 5 10/10/2024 Health Literacy Answer Date Recorded How often do you need to hav e someone help you when you read instructions, pamphlets, or other written material from your doctor or pharmacy? Sometimes 10/10/2024 Caregiver: How often do you need to have someone help you when you read instructions, pamphlets, or other written material from your doctor or pharmacy? Not on file 10/10/2024 Financial Risk Answer Date Recorded How hard is it for you to pa y for the very basics like food, housing, medical care, and air conditioning / heating? Not very hard 10/10/2024 Transportation Answer Date Recorded Has the lack of transportati on kept you from meetings, work, or from getting things needed for daily living? No Has the lack of transportati on kept you from medical appointments or from getting medications? No 10/10/2024 Social Isolation Answer Date Recorded How often do you feel lonely or isolated from th ose around you? Never 10/10/2024 Food Risk Answer Date Recorded Within the past 12 months we worried whether our food would run out before we got money to buy more. Never true 10/10/2024 Within the past 12 months th e food we bought just didn't last and we didn't have money to get more. Never true 10/10/2024 Dependent Care Answer Date Recorded Do you need help finding or paying for care for your loved ones. For example, child and family therapist or elderly care for an older adult? No 10/10/2024 Education Answer Date Recorded Do you think completing more education or training, like finishing a GED, going to college, or learning a trade, would be helpful for you? Yes 10/10/2024 Employment and Income Answer Date Recor ded During the last four weeks, have you been actively looking for work? No 10/10/2024 Living Situation Answer Date Recorded What is your living situation? 0 10/10/2024 Sex and Gender Information Value Date Recorded Sex Assigned at Not on file Legal Sex Male 4:37 AM EST Gender Identity Not on file Sexual Orientation Not on file Obstetrics History Last Filed Vital Signs Vital Sign Reading Time Taken Comments Blood Pressure 130/90 10/10/2024 2:37 PM EDT Pulse 85 10/10/2024 2:37 PM EDT Temperature 36.6 C (97.8 F) 09/17/2024 11:29 AM EDT Respiratory Rate 14 10/10/2024 2:37 PM EDT Oxygen Saturation 97% 09/17/2024 11:29 AM EDT Inhaled Oxygen Concentration - - Weight 68 kg (150 lb) 10/10/2024 2:37 PM EDT Height 165.1 cm (5' 5 ) 08/27/2024 1:39 PM EDT Body Mass Index 24.96 08/27/2024 1:39 PM EDT Plan of Treatment Upcoming Encounters Date Type Department Care Team (Late st Contact Info) Description 02/04/2025 10:00 AM EDT Office Visit [address] [phone] Carlin Rider MD [address] [place] [phone] 05/06/2025 1:15 PM EST Office Visit Adult Medicine [address] [phone] Jesus Daniel MD [address] [place] [address] Health Maintenance Due Date Last Done Comments Hepatitis B Vaccines (3 of 3 - 3-dose series) 1992 1992, 1992, 1992 Diabetes: Annual Foot Exam 2002 Hepatitis A Vaccines (1 of 2 - Risk 2-dose series) 2011 HPV Vaccines (2 - Male 3-dose series) 08/28/2012 07/31/2012 Pneumococcal Vaccine: Pediatrics (0 to 5 Years) and At-Risk Patients (6 to 49 Years) (2 of 2 - PCV) 07/02/2019 07/02/2018, 09/25/2007 COVID-19 Vaccine (5 - 2024- season) 2025 07/04/2023, 05/14/2021, 10/14/2020, Additional history exists Influenza Vaccine (#1) 2025 , 05/12/2022, 03/08/2021, Additional history exists Diabetes: Blood Sugar Control Test (HGBA1C) 02/26/2025 08/27/2024, 08/07/2024, 08/07/2024, Additional history exists Diabetes: Annual Retina Eye Exam 03/14/2025 03/14/2024 Hypertension/CHF/CAD Annual BMP Blood Test 09/17/2025 09/17/2024, 01/18/2024, 01/18/2024, Additional history exists Social Influencers of Health Screening 10/10/2025 10/10/2024, 08/27/2024 DTaP,Tdap,and Td Vaccines (8 - Td or Tdap) 05/24/2026 05/24/2016, 09/25/2007, 01/23/1997, Additional history exists Cholesterol Screening (Lipid Panel) 08/27/2029 08/27/2024, 08/07/2024, 05/15/2024, Additional history exists HIB Vaccines Completed 10/09/1995, 08/1992, 1992 IPV Vaccines Completed 01/23/1997, 07/1995, 04/07/1993, Additional history exists MMR Vaccines Completed 01/23/1997, 10/09/1995 Meningococcal ACWY Vaccine Aged Out 09/25/2007 N o longer eligible based on patient's age to complete this topic HIV Screening Completed 08/27/2024 Hepatitis C Screening Completed 08/27/2024 Depression Screening Completed 10/10/2024, 09/18/19 24 Meningococcal B Vaccine Aged Out No l onger eligible based on patient's age to complete this topic RSV Immunization Patients Under 20 months Aged Out No longer eligible based on patient's age to complete this topic Varicella Vaccines Aged Out No longer eligible based on patient's age to complete this topic Procedures Procedure Name Priority Date/Time Associated Diagnosis Comments COMPREHENSIVE METABOLIC PANEL STAT 09/17/2024 7:59 AM EDT HEPATITIS C ANTIBODY Routine 08/27/2024 2:31 PM EDT Need for hepatitis C screening test HIV 1, 2 ANTIBODY, P24 ANTIGEN WITH REFLEX TO DIFFERENTIATION Routine 08/27/2024 2:31 PM EDT Screen for STD (sexually transmitted disease) HEMOGLOBIN A1C Routine 08/27/2024 2:31 PM EDT Type 1 diabetes mellitus with chronic kidney disease on chronic dialysis (CMS/HCC V24, CMS/HCC V28) LIPID PANEL WITH REFLEX TO DIRECT LDL Routine 08/27/2024 2:31 PM EDT Hyperlipidemia, unspecified hyperlipidemia type EXTERNAL DIABETIC RETINA EYE EXAM Routine 03/14/2024 2:38 PM EST HM DEPRESSION SCREENING Routine 09/18/2023 from Last 3 Months or Most Recently Relevant to Health Maintenance Results * (ABNORMAL) Comprehensive metabolic panel (09/17/2024 7:59 AM EDT) Sodium 131(L) 133 - 145 mmol/L LAB CHEMISTRY METHOD 09/17/2024 9:00 AM [facility] Potassium 3.9 3.5 - 5.5 mmol/L LAB CHEMISTRY METHOD 09/17/2024 9:00 AM [facility] Chloride 92(L) 96 - 110 mmol/L LAB CHEMISTRY METHOD 09/17/2024 9:00 AM [facility] CO2 26 21 - 32 mmol/L LAB CHEMISTRY METHOD 09/17/2024 9:00 AM [facility] Anion Gap 13(H) 3 - 11 LAB CHEMISTRY METHOD 09/17/2024 9:00 AM [facility] Glucose 148(H) 70 - 100 mg/dL LAB CHEMISTRY METHOD 09/17/2024 9:00 AM [facility] BUN 39(H) 5 - 25 mg/dL LAB CHEMISTRY METHOD 09/17/2024 9:00 AM [facility] Creatinine 8.67(H) 0.70 - 1.30 mg/dL LAB CHEMISTRY METHOD 09/17/2024 9:00 AM [facility] eGFR 8(L) >=60 mL/min/1. 73m2 LAB CHEMISTRY METHOD 09/17/2024 9:00 AM [facility] Comment:Calculation based on the Chronic Kidney Disease Epidemiology Collaboration (CKD-EPI) equation refit without adjustment for race. BUN/Creatinine Ratio 4.5 LAB CHEMISTRY METHOD 09/17/2024 9:00 AM [facility] Calcium 9.3 8.5 - 10.5 mg/dL LAB CHEMISTRY METHOD 09/17/2024 9:00 AM [facility] AST (SGOT) 24 10 - 42 unit/L LAB CHEMISTRY METHOD 09/17/2024 9:00 AM [facility] ALT (SGPT) 20 10 - 60 unit/L LAB CHEMISTRY METHOD 09/17/2024 9:00 AM [facility] Alkaline Phosphatase 190(H) 42 - 121 unit/L LAB CHEMISTRY METHOD 09/17/2024 9:00 AM [facility] Total Protein 9.0(H) 6.0 - 8.0 g/dL LAB CHEMISTRY METHOD 09/17/2024 9:00 AM [facility] Albumin 4.3 3.2 - 5.0 g/dL LAB CHEMISTRY METHOD 09/17/2024 9:00 AM [facility] Total Bilirubin 0.5 0.0 - 1.4 mg/dL LAB CHEMISTRY METHOD 09/17/2024 9:00 AM [facility] Blood Venous blood specimen / Unknown Venipuncture / Unknown 09/17/2024 7:59 AM EDT 09/17/2024 8:36 AM EDT Miles Vaughn DO LAB BLOOD ORDERABLES Final Result Performing Organization Address City/[facility]/ZIP Co de Phone Number [facility] [address] [place] [address], [place] [phone] * Hepatitis C antibody (08/27/2024 2:31 PM EDT) Pathologist [facility] Hepatitis C Antibody Negative Negative LAB CHEMISTRY METHOD 08/27/2024 5:52 PM EDT [facility] Blood Venous blood specimen / Unknown Venipuncture / Unknown 08/27/2024 2:31 PM EDT 08/27/2024 2:31 PM EDT Rani ALY LAB BLOOD ORDERABLES Fi nal Result Performing Organization Address City/[facility]/ZIP Co de Phone Number [facility] [address] [place] [address], [place] [phone] * HIV 1,2 antibody, p24 antigen with reflex to differentiation (08/27/2024 2:31 PM EDT) [facility] HIV Combo AB/AG Negative Negative LAB CHEMISTRY METHOD 08/27/2024 5:53 PM EDT [facility] Blood Venous blood specimen / Unknown Venipuncture / Unknown 08/27/2024 2:31 PM EDT 08/27/2024 2:31 PM EDT Narrative [facility] - 08/27/2024 5:53 PM EDT This assay is a 4th generation assay allowing for earlier detection of HIV infection by detecting the presence of the HIV-1 p24 antigen as well as the traditional antibodies to HIV type 1 (including group O) and type 2. Use of a 4th generation assay is the current CDC recommendation for HIV screening. Rani ALY LAB BLOOD ORDERABLES Fi nal Result [facility] [address] [place] [address], [place] [phone] * Lipid panel with reflex to direct LDL (08/27/2024 2:31 PM EDT) Cholesterol 119 0 - 200 mg/dL LAB CHEMISTRY METHOD 08/27/2024 7:04 PM EDT [facility] Triglycerides 64 0 - 150 mg/dL LAB CHEMISTRY METHOD 08/27/2024 7:04 PM EDT [facility] HDL 42 >=40 mg/dL LAB CHEMISTRY METHOD 08/27/2024 7:04 PM EDT [facility] LDL Calculated 64 0 - 100 mg/dL LAB CHEMISTRY METHOD 08/27/2024 7:04 PM EDT [facility] VLDL Cholesterol Butch 12.8 mg/dL LAB CHEMISTRY METHOD 08/27/2024 7:04 PM EDT [facility] Non HDL Chol. (LDL+VLDL) 77 <145 mg/dL LAB CHEMISTRY METHOD 08/27/2024 7:04 PM EDT [facility] Chol/HDL Ratio 2.8 0.0 - 4.4 LAB CHEMISTRY METHOD 08/27/2024 7:04 PM EDT [facility] Blood Venous blood specimen / Unknown Venipuncture / Unknown 08/27/2024 2:31 PM EDT 08/27/2024 2:31 PM EDT Rani ALY LAB BLOOD ORDERABLES Fi nal Result [facility] [address] [place] [address], [place] [phone] * Hemoglobin A1c (08/27/2024 2:31 PM EDT) Hemoglobin A1C 5.7 <6.5 % LAB CHEMISTRY METHOD 08/27/2024 10:43 PM EDT [facility] Mean Bld Glu Estim. 117 mg/dL LAB CHEMISTRY METHOD 08/27/2024 10:43 PM EDT [facility] Blood Venous blood specimen / Unknown Venipuncture / Unknown 08/27/2024 2:31 PM EDT 08/27/2024 2:31 PM EDT Rani ALY LAB BLOOD ORDERABLES Fi nal Result [facility] [address] [place] [address], * External Diabetic Retina Eye Exam Report (03/14/2024 2:38 PM EST) Anatomical Region Laterality Modality Ultrasound Historical Provider IMG US PROCEDURES Final R esult * Depression Screening (09/18/2023) Depression Screening abstracted Historical Provider HEALTH MAINTENANCE Final Result from Last 3 Months or Most Recently Relevant to Health Maintenance Insurance [facility] [employer] Care Teams Child Care Aide Relationship Specialty Start Date End Date Jesus Dainel MD [address] [place] [phone] PCP - General Internal Medicine 05/24/24
--- OUTSIDE RECORDS SUMMARY | 2025-01-07 10:17 | XMS_ITS | Encounter Summary ---
Author Organization [facility] Address [address] [place] [phone] Phone Care Team Providers Care Criminal Justice Lawyer Name Role Phone Selvin Bojorquez MD Primary Care Provider [phone] Encounter Details Date Type Department Care Team (Late st Contact Info) Description 09/30/2009 Documentation EM Family Medicine [address] [place], [place] [phone] Family Medicine, Physician [address] [place] [address] Social History Tobacco Use Types Packs/Day Years [...] on filedocumented in this encounter Care Teams Criminal Justice Lawyer Relationship Specialty Start Date End Date Selvin Bojorquez MD [address] [place] [address] [place] [address] PCP - General 12/16/16 10/12/22 documented as of this encounter
--- OUTSIDE RECORDS SUMMARY | 2025-01-07 10:17 | XMS_ITS | Encounter Summary ---
Author Organization [facility] Address [address] [place] [address] Phone Care Team Providers Care Legal Receptionist Name Role Phone Selvin Bojorquez MD Primary Care Provider [phone] Encounter Details Date Type Department Care Team (Late st Contact Info) Description 10/05/2011 Documentation EM Family Medicine [address] [place], [place] [id number] Family Medicine, Physician [address] [place] [address] Social History Tobacco Use Types Packs/Day Years [...] on filedocumented in this encounter Care Teams Legal Receptionist Relationship Specialty Start Date End Date Selvin Bojorquez MD [address] [place] [address] [place] [address] PCP - General 12/16/16 10/12/22 documented as of this encounter
--- OUTSIDE RECORDS SUMMARY | 2025-01-07 10:17 | XMS_ITS | Encounter Summary ---
Author Organization [facility] Address [address] [place] [address] Phone Care Team Providers Care R&D Engineer Name Role Phone Selvin Bojorquez MD Primary Care Provider [phone] Encounter Details Date Type Department Care Team (Late st Contact Info) Description 04/10/2013 Documentation EM Family Medicine [address] [place], [place] [phone] Family Medicine, Physician [address] [place] [address] Social History Tobacco Use Types Packs/Day Years [...] on filedocumented in this encounter Care Teams R&D Engineer Relationship Specialty Start Date End Date Selvin Bojorquez MD [address] [place] [address] [place] [address] PCP - General 12/16/16 10/12/22 documented as of this encounter
--- OUTSIDE RECORDS SUMMARY | 2025-01-07 10:17 | XMS_ITS | Clinical Summary ---
Author Organization [facility] Address [address] [place] [address] Phone Care Team Providers Care Barrel Straightener Name Role Phone Unavailable Primary Care Provider Unavailabl e Immunizations Immunization Administration Dates Next Due DTP 01/23/1997,199 6,04/07/1993,09/08,1992,1992 HPV, Quadrivalent 07/31/2012 Hep B, ped/adol 1992,1992,1992 Hib (PRP-T) 10/09/1995,1992,1992 Influenza Split 02/20/2012,01/06/2011 Influenza, injectable, quadr ivalent, preservative free 05/21/2013 Influenza, injectable, trivalent 01/22/2009 MMR 01/23/1997,10/09/1995 Meningococcal Conj (Menactra) MCV4P 09/25/2007 OPV 01/23/1997, 6,04/07/1993,09/08,1992 Pneumococcal Polysaccharide 09/25/2007 Tdap 09/25/2007 Family History Relation Name Status Comments Brother 1 Alive Brother: Alive and well, Alive and well Brother 2 Alive Brother: Alive and well, Alive and well Father Alive Father: Alive a nd well Mother Alive Mother: Alive a nd well Other Family history of Strabismus, Family history of Obesity Paternal Grandmother Paterna l grandmother: Diabetes mellitus Sister 1 Alive Sister: Alive a nd well, Alive and well Sister 2 Alive Sister: Alive a nd well, Alive and well Social History Tobacco Use Types Packs/Day Years Used Date Smoking Tobacco: Never Comments:Never smoker Sex and Gender Information Value Date Recorded Sex Assigned at Not on file Legal Sex Male 4:51 PM EDT Gender Identity Not on file Sexual Orientation Not on file Last Filed Vital Signs Vital Sign Reading Time Taken Comments Blood Pressure 122/80 05/21/2013 12:00 AM EST Pulse 64 01/06/2011 12:00 AM EDT Temperature 35.9 C (96.7 F) 05/21/2013 12:00 AM EST Respiratory Rate - - Oxygen Saturation - - Inhaled Oxygen Concentration - - Weight 81.2 kg (179 lb) 05/21/2013 12:00 AM EST Height 166.4 cm (5' 5.5 ) 05/21/2013 12:00 AM ES T Body Mass Index 29.33 05/21/2013 12:00 AM EST Plan of Treatment Health Maintenance Due Date Last Done Comments Hepatitis B Vaccines (3 of 3 - 3-dose series) 1992 1992, 1992, 1992 Varicella Vaccines (1 of 2 - 13+ 2-dose series) 2005 HPV Vaccines (2 - Male 3-dose series) 08/28/2012 07/31/2012 Influenza Vaccines (#1) 2024 05/12/19, 03/08/2021, 05/24/2016, Additional history exists COVID-19 Vaccine (2024- season) 2025 05/14/2021, 10/14/2020, 09/23/2020 DTaP,Tdap,and Td Vaccines (8 - Td or Tdap) 05/24/2026 05/24/2016, 09/25/2007, 01/23/1997, Additional history exists HIB Vaccines Completed 10/09/1995, 08/1992, 1992 IPV Vaccines Completed 01/23/1997, 07/1995, 04/07/1993, Additional history exists MMR Vaccines Completed 01/23/1997, 10/09/1995 Meningococcal Vaccine Aged Out 09/25/2007 No sam judi eligible based on patient's age to complete this topic Pneumococcal Vaccine Aged Out 07/02/2018, 09/25/19 08 No longer eligible based on patient's age to complete this topic Hepatitis A Vaccines Aged Out No long er eligible based on patient's age to complete this topic Men B Vaccine Aged Out No longer elig ible based on patient's age to complete this topic
--- OUTSIDE RECORDS SUMMARY | 2025-01-07 10:17 | XMS_ITS | Encounter Summary ---
Author Organization [facility] Address [address] [place] [address] Phone Care Team Providers Care Wood Drilling Machine Operator Name Role Phone Selvin Bojorquez MD Primary Care Provider [phone] Encounter Details Date Type Department Care Team (Late st Contact Info) Description 01/11/2013 Documentation EM Family Medicine [address] [place], [place] [phone] Family Medicine, Physician [address] [place] [address] Social History Tobacco Use Types Packs/Day Years [...] on filedocumented in this encounter Care Teams Wood Drilling Machine Operator Relationship Specialty Start Date End Date Selvin Bojorquez MD [address] [place] [address] [place] [address] PCP - General 12/16/16 10/12/22 documented as of this encounter
--- OUTSIDE RECORDS SUMMARY | 2025-01-07 10:17 | XMS_ITS | Encounter Summary ---
Author Organization [facility] Address [address] [place] [address] Care Team Providers Care Veneer Matcher Name Role Phone Jesus Daniel MD Primary Care Provider [phone] Encounter Details Date Type Department Care Team ([facility] Contact Info) Description 08/02/2024 Nurse Triage Adult [address] [phone] Jesus Daniel MD [address] [place] [address] Social History Tobacco Use Types Packs/Day Years Used Date Smoking Tobacco: Every Day Smokeless Tobacco: Never Alcohol Use Standard Drinks/Week Comments No 0 (1 standard drink = 0.6 oz pur e alcohol) Sex and Gender Information Value Date Recorded Sex Assigned at Not on file Legal Sex Male 4:37 AM EST Gender Identity Not on file Sexual Orientation Not on file documented as of this encounter Plan of Treatment Upcoming Encounters Date Type Department Care Team (Late Contact Info) Description 02/04/2025 10:00 AM EDT Office Visit [address] [phone] Carlin Rider MD [address] [place] [address] 05/06/2025 1:15 PM EST Office Visit Adult [address] [phone] Jesus Daniel MD [address] [place], [place] documented as of this encounter Visit Diagnoses Not on filedocumented in this encounter Care Teams Veneer Matcher Relationship Specialty Start Date End Date Jesus Daniel MD [address] [place] [address] PCP - General Internal Medicine 05/24/24 documented as of this encounter
--- OUTSIDE RECORDS SUMMARY | 2025-01-07 10:17 | XMS_ITS | Encounter Summary ---
Author Organization [facility] Address [address] [place] [address] Phone Care Team Providers Care Wool Tamper Name Role Phone Selvin Bojorquez MD Primary Care Provider [phone] Encounter Details Date Type Department Care Team (Late st Contact Info) Description 07/30/2014 Documentation EM Family Medicine [address] [place] [address] Family Medicine, Physician [address] [place], [place] 8[address] Social History Tobacco Use Types Packs/Day Years [...] on filedocumented in this encounter Care Teams Wool Tamper Relationship Specialty Start Date End Date Selvin Bojorquez MD [address] [place] [address] [place] [address] PCP - General 12/16/16 10/12/22 documented as of this encounter
--- OUTSIDE RECORDS SUMMARY | 2025-01-07 10:17 | XMS_ITS | Encounter Summary ---
Author Organization [facility] Address [address] [place] [address] Phone Care Team Providers Care Hammer Runner Name Role Phone Selvin Bojorquez MD Primary Care Provider [phone] Encounter Details Date Type Department Care Team (Late st Contact Info) Description 06/12/2014 Documentation EM Family Medicine [address] [place] [address] Family Medicine, Physician [address] [place] [address] Social History Tobacco Use Types Packs/Day Years [...] on filedocumented in this encounter Care Teams Hammer Runner Relationship Specialty Start Date End Date Selvin Bojorquez MD [address] [place] [address] [place] [address] PCP - General 12/16/16 10/12/22 documented as of this encounter
--- OUTSIDE RECORDS SUMMARY | 2025-01-07 10:17 | XMS_ITS | Encounter Summary ---
Author Organization [facility] Address [address] [place] [address] Phone Care Team Providers Care Double Spindle Shaper Operator Name Role Phone Selvin Bojorquez MD Primary Care Provider [phone] Encounter Details Date Type Department Care Team (Late st Contact Info) Description 01/28/2010 Documentation EM Family Medicine [address] [place], [place] [phone] Family Medicine, Physician [address] [place], [place] 24[address] Social History Tobacco Use Types Packs/Day Years [...] on filedocumented in this encounter Care Teams Double Spindle Shaper Operator Relationship Specialty Start Date End Date Selvin Bojoruqez MD [address] [place] [address] [place] [address] PCP - General 12/16/16 10/12/22 documented as of this encounter
--- OUTSIDE RECORDS SUMMARY | 2025-01-07 10:17 | XMS_ITS | Encounter Summary ---
Author Organization [facility] Address [address] [place] [address] Phone Care Team Providers Care Insurance Claims Examiner Name Role Phone Selvin Bojorquez MD Primary Care Provider [phone] Encounter Details Date Type Department Care Team (Late st Contact Info) Description 07/22/2013 Documentation EM Family Medicine [address] [place], [place] [phone] Family Medicine, Physician [address] [place] [address] Social History Tobacco Use Types Packs/Day Years [...] on filedocumented in this encounter Care Teams Insurance Claims Examiner Relationship Specialty Start Date End Date Selvin Bojorquez MD [address] [place] [address] [place] [address] PCP - General 12/16/16 10/12/22 documented as of this encounter
--- OUTSIDE RECORDS SUMMARY | 2025-01-07 10:17 | XMS_ITS | Encounter Summary ---
Author Organization [facility] Address [address] [place] [address] Phone Care Team Providers Care Multimedia Assistant Name Role Phone Selvin Bojorquez MD Primary Care Provider [phone] Encounter Details Date Type Department Care Team (Late st Contact Info) Description 09/13/2011 Documentation EM Family Medicine [address] [place], [place] [phone] Family Medicine, Physician [address] [place] [address] Social History Tobacco Use Types Packs/Day Years [...] on filedocumented in this encounter Care Teams Multimedia Assistant Relationship Specialty Start Date End Date Selvin Bojorquez MD [address] [place] [address] [place] [address] PCP - General 12/16/16 10/12/22 documented as of this encounter
--- OUTSIDE RECORDS SUMMARY | 2025-01-07 10:17 | XMS_ITS | Encounter Summary ---
Author Organization [facility] Address [address] [place] [address] Phone Care Team Providers Care Clock Maker Name Role Phone Selvin Bojorquez MD Primary Care Provider [phone] Encounter Details Date Type Department Care Team (Late st Contact Info) Description 04/22/2013 Documentation EM Family Medicine [address] [place], [place] [phone] Family Medicine, Physician [address] [place] [address] Social History Tobacco Use Types Packs/Day Years [...] on filedocumented in this encounter Care Teams Clock Maker Relationship Specialty Start Date End Date Selvin Bojorquez MD [address] [place] [address] [place] [address] PCP - General 12/16/16 10/12/22 documented as of this encounter
--- OUTSIDE RECORDS SUMMARY | 2025-01-07 10:17 | XMS_ITS | Encounter Summary ---
Author Organization [facility] Address [address] [place] [address] Phone Care Team Providers Care Surgery Consultant Name Role Phone Selvin Bojorquez MD Primary Care Provider [phone] Encounter Details Date Type Department Care Team (Late st Contact Info) Description 12/22/2016 Conversion Encounter [facility] [address] [place] [address] Social History Tobacco Use Types Packs/Day Years [...] on filedocumented in this encounter Care Teams Surgery Consultant Relationship Specialty Start Date End Date Selvin Bojorquez MD [address] [place] [address] PCP - General 12/16/16 10/12/22 documented as of this encounter
--- OUTSIDE RECORDS SUMMARY | 2025-01-07 10:17 | XMS_ITS | Encounter Summary ---
Author Organization [facility] Address [address] [place] [address] Phone Care Team Providers Care Manager Helpdesk Name Role Phone Selvin Bojorquez MD Primary Care Provider [phone] Encounter Details Date Type Department Care Team (Late st Contact Info) Description 01/02/2013 Documentation EM Family Medicine [address] [place], [place] [phone] Family Medicine, Physician [address] [place] [address] Social History Tobacco Use Types Packs/Day Years [...] on filedocumented in this encounter Care Teams Manager Helpdesk Relationship Specialty Start Date End Date Selvin Bojorquez MD [address] [place] [address] [place] [address] PCP - General 12/16/16 10/12/22 documented as of this encounter
--- OUTSIDE RECORDS SUMMARY | 2025-01-07 10:18 | XMS_ITS | Encounter Summary ---
Author Organization [facility] Address [address] [facility] [address] [place] [address] Phone Care Team Providers Care Bus Analyst Name Role Phone Jesus Daniel MD Primary Care Provider [phone] Encounter Details Date Type Department Care Team (Late st Contact Info) Description 09/28/2023 Office Communication [facility] [address] [facility] [address] [place] [phone] Gin Ashley ARNP [address] [facility] [address] [place] [phone] Social History Tobacco Use Types Packs/Day Years [...] on filedocumented in this encounter Care Teams Bus Analyst Relationship Specialty Start Date End Date Jesus Daniel MD [address] [place] [address] PCP - General Internal Medicine 08/14/23 documented as of this encounter
--- OUTSIDE RECORDS SUMMARY | 2025-01-07 10:18 | XMS_ITS | Encounter Summary ---
Author Organization [facility] Address [address] [facility] [address] [place] [address] Phone Care Team Providers Care Books Binder Name Role Phone Jesus Daniel MD Primary Care Provider [phone] Encounter Details Date Type Department Care Team (Late st Contact Info) Description 11/12/2023 Office Communication [facility] [address] [facility] [address] [place] [phone] Gin Ashley ARNP [address] [facility] [address] [place] [phone] Social History Tobacco Use Types Packs/Day Years [...] on file documented as of this encounter Miscellaneous Notes * Telephone Encounter - Gin Ashley ARNP - 11/13/2023 10:33 PM EDT Thanks! documented in this encounter Plan of Treatment Not on file documented as of this encounter Visit Diagnoses Not on filedocumented in this encounter Care Teams Books Binder Relationship Specialty Start Date End Date Jesus Daniel MD [address] [place] [address] PCP - General Internal Medicine 08/14/23 documented as of this encounter
--- OUTSIDE RECORDS SUMMARY | 2025-01-07 10:18 | XMS_ITS | Encounter Summary ---
Author Organization [facility] Address [address] [place] [address] [place] [address] Phone Care Team Providers Care Laboratory Mechanical Technician Name Role Phone Jesus Daniel MD Primary Care Provider [phone] Encounter Details Date Type Department Care Team (Late st Contact Info) Description 08/27/2020 Orders Only [facility] [address] [place] [address] [place] [address] Provider, MD Crissy Social History Tobacco Use Types Packs/Day Years Used Date Smoking Tobacco: Never Assessed Sex and Gender Information Value Date Recorded Sex Assigned at Not on file Legal Sex Male 5:25 PM EST Gender Identity Not on file Sexual Orientation Not on file documented as of this encounter Progress Notes * Merari Tellez MA - 08/27/2020 4:53 PM EDT He has a appointment in October at [facility] with you documented in this encounter Plan of Treatment Not on file documented as of this encounter Procedures Procedure Name Priority Date/Time Associated Diagnosis Comments EXT RESULT ENTRY Routine 08/27/2020 documented in this encounter Results * EXT RESULT ENTRY (08/27/2020) Historical Provider LAB BLOOD ORDERABLES Sindhu l Result documented in this encounter Visit Diagnoses Not on filedocumented in this encounter Care Teams Laboratory Mechanical Technician Relationship Specialty Start Date End Date Jesus Daniel MD [address] [place] [address] PCP - General Internal Medicine 08/14/23 documented as of this encounter
--- OUTSIDE RECORDS SUMMARY | 2025-01-07 10:18 | XMS_ITS | Clinical Summary ---
Author Organization [facility] Address [address] [place] [phone] Phone Care Team Providers Care Consumer Credit Counselor Name Role Phone Jesus Daniel MD Primary Care Provider [phone] Allergies No known active allergies Medications ferrous sulfate 325 (65 Fe) MG tablet TAKE 1 TABLET BY MOUTH EVERY DAY WITH VITAMIN C 024 Active dorzolamide-timolol (COSOPT) 2-0.5 % ophthalmic solution Administer 1 drop into affected eye(s) 017 Active hydrOXYzine (ATARAX) 50 MG tablet TAKE 1 TABLET BY MOUTH THREE TIMES A DAY NEEDED FOR ANXIETY 024 Active Lantus SoloStar 100 UNIT/ML injection Inject 26 Units under the skin 024 Active Insulin Lispro 100 UNIT/ML solution 2 Units 023 Active FREESTYLE LITE test strip TEST SUGARS 3 TIMES A DAY BEFORE MEALS 024 Active Insulin Glargine-yfgn 100 UNIT/ML solution INJECT 26 UNITS INTO THE SKIN AT BEDTIME 024 Active methocarbamol (ROBAXIN) 500 MG tablet Take 1,000 mg by mouth 019 Active metoclopramide (REGLAN) 10 MG tablet TAKE 1 TABLET BY MOUTH 3 TIMES A DAY BEFORE MEALS AND BEDTIME 020 Active Multiple Vitamin (Daily-Zaria Multivitamin) tablet Take 1 tablet by mouth 1 (one) time each day 023 Active omeprazole (PriLOSEC) [address] capsule Take 40 mg by mouth Active ondansetron ODT (ZOFRAN-ODT) 4 MG dispersible tablet Take 4 mg by mouth 019 Active pantoprazole (PROTONIX) 40 MG EC tablet Take 1 tablet by mouth Active promethazine (PHENERGAN) 12.5 MG tablet Take 12.5 mg by mouth 020 Active Prucalopride Succinate (Motegrity) 1 MG tablet Take 1 mg by mouth 022 Active rosuvastatin (CRESTOR) 5 MG tablet Take 1 tablet by mouth 1 (one) time each day 023 Active latanoprost (XALATAN) 0.005 % ophthalmic solution 020 Active docusate sodium (COLACE) 100 MG capsule Take 100 mg by mouth Active Continuous Glucose Sensor (Dexcom G7 Sensor) [facility] [place] 024 Active chlorproMAZINE (THORAZINE) 50 MG tablet TAKE 1 AND 1/2 TABLET BY MOUTH EVERY EVENING 023 Active brimonidine (ALPHAGAN) 0.2 % ophthalmic solution INSTILL ONE DROP INTO BOTH EYES THREE TIMES A DAY 024 Active ARIPiprazole (ABILIFY) 15 MG tablet Take 1 tablet by mouth 1 (one) time each day 023 Active acetaminophen (TYLENOL) 325 MG tablet 024 Active dilTIAZem XR (DILACOR XR) 180 MG 24 hr capsule Take 180 mg by mouth 1 (one) time each day 024 Active calcitriol (Rocaltrol) 0.25 MCG capsuleIndications:Se condary hyperparathyroidism of renal origin (HCC) Take 1 capsule (0.25 mcg total) by mouth 1 (one) time each day 30 capsule 5 024 Active furosemide (LASIX) 20 MG tablet TAKE 1 TABLET (20 MG TOTAL) BY MOUTH ONE TIME EACH DAY 90 tablet 1 024 Active dilTIAZem CD (Cardizem CD) 180 MG 24 hr capsule Take 1 capsule (180 mg total) by mouth 1 (one) time each day 90 capsule 3 024 Active calcium carbonate (Tums) 500 MG chewable tablet Chew 1 tablet (500 mg total) 1 (one) time each day 90 tablet 3 024 2024 Active NIFEdipine XL (PROCARDIA XL) 60 MG 24 hr tablet TAKE 1 TAB BY MOUTH TWICE DAILY 180 tablet 1 025 Active sevelamer carbonate (RENVELA) 800 MG tablet TAKE 2 TABLETS BY MOUTH IN THE MORNING AND 2 TABLETS IN THE EVENING. DO NOT CRUSH, BREAK, OR CHEW. 210 tablet 6 025 Active torsemide (DEMADEX) 20 MG tablet TAKE 3 TABLETS BY MOUTH 1 TIME EACH DAY 270 tablet 2 025 Active D3-1000 25 MCG (1000 UT) capsuleIndications:Vi tamin D deficiency, not otherwise specified TAKE 2 CAPSULES BY MOUTH EVERY MORNING 180 capsule 1 025 Active D3 High Potency 25 MCG capsuleIndications:Vi tamin D deficiency, not otherwise specified TAKE 2 CAPSULES BY MOUTH EVERY MORNING 180 capsule 1 025 2024 Discontinued Active Problems Problem Noted Date Diagnosed Date Secondary hyperparathyroidism of renal origin Assessment & Plan (10/25/2023 11:34 PM EDT): Calcium low at 8.1, Phos elevated at 5.2 as of 09/27/23 Elevated PTH 230 from 173 On Calcitriol 0.25 mcg QD - will confirm if indeed taking Target PTH for CKD Stage is <300 Assessment & Plan (09/27/2023 11:15 PM EDT): Ca low 8.6 Mildly elevated PO4 4.9 iPTH above target at 173 Target iPTH for current CKD Stage is 70-110 Will start Calcitriol 0.25 mcg QD if this does not improve Chronic kidney disease, stage 4 (severe) 024 Overview (09/19/2023): Secondary to diabetic nephropathy Avoid Nephrotoxins Optimize DM control Assessment & Plan (10/25/2023 11:28 PM EDT): Creat 5.07, eGFR 15 as of 09/27/23 Normal Lytes Not on MAGGIE/ARB d/t advanced renal disease Has appointment with vascular services for vein mapping for AVF evaluation Assessment & Plan (09/27/2023 11:13 PM EDT): Stable Creat 4.67, eGFR 16 Improved K from 5.6 to 5.3 - Follow low K diet and monitor Referred for Kidney Transplant Evaluation Referred to Vascular for AVF evaluation Assessment & Plan (09/19/2023 9:39 PM EDT): Stable Creat 4.67, eGFR 16 as of today, compared to 5.23 on 08/18/23 Potassium on the high side at 5.6 w/ normal Na 142 Anemia present, requiring Epo replacement Ca low 8.6, PO4 mildly elevated at 4.9, iPTH within target at 173 for current CKD Stage Stable BLE Edema Will monitor closely Anemia in chronic kidney disease 09/19/2023 Overview (09/19/2023): Target Hgb 10-12 Monitor iron studies, on oral iron supplementation Assessment & Plan (10/25/2023 11:36 PM EDT): Hgb 9.5 via Hemacue in clinic a week ago Iron studies WNL as of 08/2023 Received Retacrit injection per protocol Will cont to follow closely, following up next week for next assessment Assessment & Plan (09/27/2023 11:16 PM EDT): Hemoglobin 8.9 today Normal iron studies as of 08/30/23 Retacrit 20,000U administered today for his 2nd dose this month Return in 2 weeks for Hgb recheck and Retacrit Assessment & Plan (09/19/2023 9:25 PM EDT): Hgb 8.6 as of today, improved from 7.4 Iron studies sufficient Will be receiving Epo replacement therapy Hypertension 04/22/2022 Overview (09/19/2023): Follow low NA diet Avoid NSAIDs/OTC Decongestant medication Target BP <120/80 Assessment & Plan (10/25/2023 11:31 PM EDT): Blood pressure elevated here today Recommend check home BP closely today and tomorrow and if remains elevated >180/100, go to ER No Edema Taking Amlodipine 10 mg QD, Diltiazem XR 180 mg QD and Furosemide 20 mg QD. Continue the same, no med changes Assessment & Plan (09/27/2023 11:19 PM EDT): Blood pressure is elevated, 144/90 here today Recommend monitoring BP at home and bringing in readings for review for next visit On Diltiazem XR 180 mg QD, Amlodipine 10 mg QD and Furosemide 20 mg QD Edema present No Med changes made today Assessment & Plan (09/19/2023 9:37 PM EDT): Blood pressure is well controlled Taking Diltiazem 120 mg QD and Furosemide 20 mg QD Edema present No medication changes made today Monitor BP at home and bring in readings for review Proteinuria, not otherwise specified 05/24/2016 Assessment & Plan (09/19/2023 9:28 PM EDT): Urine for alb/creat ration elevated at 4006 mg /g Off MAGGIE/ARB due to high Creat Vitamin D deficiency, not otherwise specified Assessment & Plan (09/19/2023 9:40 PM EDT): Vitamin D25 low at 15.1 Start daily vitamin D3 2000U supp Recheck level in 6 mos Resolved Problems Problem Noted Date Diagnosed Date Resolved Date Hyperlipidemia 07/15/2021 08/17/2023 Chronic kidney disease stage 3 12/26/2019 09/19/2023 Anxiety 01/30/2018 08/17/2023 Irritable bowel syndrome with constipation 10/03/2017 08/17/2023 Other postsurgical status 07/03/2017 Overview (08/17/2023): G-J tube placed by IR on 06/09/2017. Removed 10/03/2017. Superior mesenteric artery syndrome 06/07/2017 08/17/2023 Mild intellectual disability 04/10/2017 08/17/2023 Gastroparesis due to diabetes mellitus 03/23/2017 08/17/2023 Chronic gastritis 03/23/2017 08/17/2023 Cannabis abuse 2017 08/17/2023 Infection caused by Helicobacter pylori 02/27/2017 08/17/2023 Neuropathy due to diabetes mellitus 04/12/2014 08/17/2023 Type 1 diabetes mellitus 01/21/201403/2024 Overview (08/17/2023): Follows with [facility] endocrinology. Klinefelter syndrome 01/21/2014 024 Overview (08/17/2023): Diagnosis from [facility] endocrinology records Mental health impairment 02/01/201203/2024 Encounters Date Type Department Care Team Description 01/06/2025 Refill [facility] [address] [phone] Saeed Silverio MD 12/25/2024 Treatment [facility] [address] [phone] Fab Barba MD End stage renal disease; Dependence on renal dialysis 12/23/2024 Treatment [facility] [address] [phone] Fab Barba MD End stage renal disease; Dependence on renal dialysis 12/18/2024 Treatment [facility] [address] [phone] Fab Barba MD End stage renal disease; Dependence on renal dialysis 12/12/2024 Refill [facility] [address] [facility] [address] [place] [phone] Gin Ashley ARNP Vitamin D deficiency, not otherwise specified 12/11/2024 Treatment [facility] [address] [phone] Fab Barba MD End stage renal disease; Dependence on renal dialysis 11/27/2024 Treatment [facility] [address] [phone] Fab Barba MD End stage renal disease; Dependence on renal dialysis 11/20/2024 Treatment [facility] [address] [phone] Fab Barba MD End stage renal disease; Dependence on renal dialysis 11/13/2024 Treatment [facility] [address] [phone] Fab Barba MD End stage renal disease; Dependence on renal dialysis 11/06/2024 Treatment [facility] [address] [phone] Fab Barba MD End stage renal disease; Dependence on renal dialysis 10/30/2024 Treatment [facility] [address] [phone] Fab Barba MD End stage renal disease; Dependence on renal dialysis 10/25/2024 Treatment [facility] [address] [phone] Fab Barba MD End stage renal disease; Dependence on renal dialysis 10/23/2024 Refill [facility] [address] [phone] Saeed Silverio MD 10/16/2024 Treatment [facility] [address] [phone] Fab Barba MD End stage renal disease; Dependence on renal dialysis 10/07/2024 Treatment [facility] [address] [phone] Fab Barba MD End stage renal disease; Dependence on renal dialysis from Last 3 Months Immunizations Immunization Administration Dates Next Due DTP 01/23/1997, 6,04/07/1993,09/08,1992,1992 HPV, Quadrivalent 07/31/2012 Hep B, Adolescent or Pediatric 1992,1992,1992 Hib (PRP-T) 10/09/1995,1992,1992 Influenza Split 02/20/2012,01/06/2011 Influenza TIV (IM) 01/22/2009 Influenza, MDCK, PF, Quadrivalent 01/24/2023,09/2022 Influenza, MDCK, Quadrivalen t, with preservative 01/30/2018 Influenza, Quadrivalent, Pre servative Free 05/21/2013 Influenza, Unspecified 03/08/2021,2018,08/09/2017,05/24 MMR 01/23/1997,10/09/1995 Meningococcal MCV4P 09/25/2007 Moderna Sars-cov-2 (Covid-19 ) Vaccine, Mrna, Blayne Protein 07/04/2023 OPV 01/23/1997, 6,04/07/1993,09/08,1992 Pfizer SARS-COV-2 05/14/2021,10/14/2020,09/24/19 21 Pneumococcal Polysaccharide 07/02/2018, 8 Tdap 05/24/2016,09/25/2007 Social History Tobacco Use Types Packs/Day Years [...] Sign Reading Time Taken Comments Blood Pressure 142/90 12/22/2023 11:48 AM EDT Pulse 83 12/22/2023 11:48 AM EDT Temperature - - Respiratory Rate - - Oxygen Saturation - - Inhaled Oxygen Concentration - - Weight 61.2 kg (135 lb) 12/22/2023 11:48 AM EDT Height - - Body Mass Index - - Plan of Treatment Health Maintenance Due Date Last Done Comments Pneumococcal Vaccine: Peds ( 0 to 5 Years) and At-Risk Patients (6 to 49 Years) (3 of 3 - PCV) 07/02/2019 07/02/2018, 09/25/2007 Diabetes: Ophthalmology Exam 11/12/2020 Diabetes: Pedal Pulse Checked 11/12/2020 Diabetes: Sensory Foot Exam 11/12/2020 Diabetes: Visual Foot Exam 11/12/2020 Hepatitis B Vaccine (3 of 5 - Risk Dialysis 4-dose series) 09/23/2024 08/26/2024, 04/26/2024, 03/29/2024, Additional history exists Influenza Vaccine (#1) 2025 3, 05/12/2022, 03/08/2021, Additional history exists Diabetes: Hemoglobin A1C 02/06/2025 025, 08/27/2024, 08/07/2024, Additional history exists Pneumococcal Vaccine: 50+ Years Discontinued 9, 09/25/2007 Procedures Procedure Name Priority Date/Time Associated Diagnosis Comments HEMOGLOBIN Routine 01/01/2025 3:00 AM EDT HEMOGLOBIN Routine 12/25/2024 3:00 AM EDT POTASSIUM Routine 12/18/2024 3:00 AM EDT LI[facility] (HC) Routine 12/18/2024 3:00 AM EDT TRANSFERRIN SATURATION Routine 3:00 AM EDT PROTEIN, TOTAL, SERUM Routine 12/11/2024 3:00 AM EDT MAGNESIUM Routine 12/11/2024 3:00 AM EDT ELECTROLYTE PANEL Routine 12/11/2024 3:0 0 AM EDT LIH (HC) Routine 12/11/2024 3:00 AM EDT GLUCOSE, RANDOM Routine 12/11/2024 3:00 AM EDT LACTATE DEHYDROGENASE Routine 12/11/2024 3:00 AM EDT CREATININE, SERUM Routine 12/11/2024 3:0 0 AM EDT BUN/CREATININE RATIO Routine 12/11/2024 3:00 AM EDT BILIRUBIN, TOTAL Routine 12/11/2024 3:00 AM EDT AST Routine 12/11/2024 3:00 AM EDT CALCIUM PHOSPHORUS PRODUCT, ADJUSTED (HC) Routine 12/11/2024 3:00 AM EDT ALT Routine 12/11/2024 3:00 AM EDT ALKALINE PHOSPHATASE Routine 12/11/2024 3:00 AM EDT FERRITIN Routine 12/11/2024 3:00 AM EDT CBC AND DIFFERENTIAL Routine 12/11/2024 3:00 AM EDT KT/V NATURAL LOG, URR (HC) Routine 12/11/2024 3:00 AM EDT HEMOGLOBIN Routine 11/27/2024 3:00 AM EDT VITAMIN D 25 HYDROXY Routine 11/13/2024 3:00 AM EDT HEMOGLOBIN A1C Routine 11/06/2024 3:00 AM EDT PROTEIN, TOTAL, SERUM Routine 11/06/2024 3:00 AM EDT TRANSFERRIN SATURATION Routine 3:00 AM EDT KT/V NATURAL LOG, URR (HC) Routine 11/06/2024 3:00 AM EDT ELECTROLYTE PANEL Routine 11/06/2024 3:0 0 AM EDT MAGNESIUM Routine 11/06/2024 3:00 AM EDT LIPID PANEL Routine 11/06/2024 3:00 AM EDT LIH (HC) Routine 11/06/2024 3:00 AM EDT LACTATE DEHYDROGENASE Routine 11/06/2024 3:00 AM EDT GLUCOSE, RANDOM Routine 11/06/2024 3:00 AM EDT AST Routine 11/06/2024 3:00 AM EDT BUN/CREATININE RATIO Routine 11/06/2024 3:00 AM EDT CREATININE, SERUM Routine 11/06/2024 3:0 0 AM EDT BILIRUBIN, TOTAL Routine 11/06/2024 3:00 AM EDT CALCIUM PHOSPHORUS PRODUCT, ADJUSTED (HC) Routine 11/06/2024 3:00 AM EDT ALT Routine 11/06/2024 3:00 AM EDT ALKALINE PHOSPHATASE Routine 11/06/2024 3:00 AM EDT PTH, INTACT Routine 11/06/2024 3:00 AM EDT FERRITIN Routine 11/06/2024 3:00 AM EDT CBC AND DIFFERENTIAL Routine 11/06/2024 3:00 AM EDT HEMOGLOBIN Routine 10/23/2024 3:00 AM EDT LIH (HC) Routine 10/18/2024 3:00 AM EDT KT/V NATURAL LOG, URR (HC) Routine 10/18/2024 3:00 AM EDT LIH (HC) Routine 10/16/2024 3:00 AM EDT KT/V NATURAL LOG, URR (HC) Routine 10/16/2024 3:00 AM EDT PTH, INTACT Routine 10/14/2024 3:00 AM EDT CBC AND DIFFERENTIAL Routine 10/09/2024 3:00 AM EDT HEPATITIS B SURFACE ANTIGEN W/REFL CONFIRM Routine 10/09/2024 3:00 AM EDT PROTEIN, TOTAL, SERUM Routine 10/09/2024 3:00 AM EDT ELECTROLYTE PANEL Routine 10/09/2024 3:0 0 AM EDT LIH (HC) Routine 10/09/2024 3:00 AM EDT TRANSFERRIN SATURATION Routine 3:00 AM EDT KT/V NATURAL LOG, URR (HC) Routine 10/09/2024 3:00 AM EDT MAGNESIUM Routine 10/09/2024 3:00 AM EDT BUN/CREATININE RATIO Routine 10/09/2024 3:00 AM EDT CREATININE, SERUM Routine 10/09/2024 3:0 0 AM EDT GLUCOSE, RANDOM Routine 10/09/2024 3:00 AM EDT LACTATE DEHYDROGENASE Routine 10/09/2024 3:00 AM EDT BILIRUBIN, TOTAL Routine 10/09/2024 3:00 AM EDT AST Routine 10/09/2024 3:00 AM EDT ALT Routine 10/09/2024 3:00 AM EDT CALCIUM PHOSPHORUS PRODUCT, ADJUSTED (HC) Routine 10/09/2024 3:00 AM EDT ALKALINE PHOSPHATASE Routine 10/09/2024 3:00 AM EDT HEPATITIS B SURFACE ANTIBODY QUANT Routine 10/09/2024 3:00 AM EDT FERRITIN Routine 10/09/2024 3:00 AM EDT from Last 3 Months Results * (ABNORMAL) Hemoglobin (01/01/2025 3:00 AM EDT) Only the most recent of4 resultswithin the time period is included. Hgb 9.9(L) 13.7 - 17.5 g/dL [facility] Hemoglobin x 3 29.7(L) 41.1 - 52.5 g/dL [facility] 01/01/2025 3:00 AM EDT 01/02/2025 2:08 PM EDT us Saeed Silverio MD LAB BLOOD ORDERABLES Final Resul t [facility] [address] [place] [address] * [facility] (12/18/2024 3:00 AM EDT) Only the most recent of6 resultswithin the time period is included. Lipemia Normal Normal [facility] Icterus Normal Normal [facility] Hemolysis Normal Normal [facility] 12/18/2024 3:00 AM EDT 12/19/2024 2:28 PM EDT us Saeed Silverio MD LAB [id number] ICITED RESULTS Final Result Performing Organization Address City/[facility]/ZIP Co de Phone Number [facility] [address] [place] [address] * Potassium (12/18/2024 3:00 AM EDT) [facility] Potassium 4.6 3.4 - 5.0 mEq/L [facility] 12/18/2024 3:00 AM EDT 12/19/2024 2:28 PM EDT us Saeed Silverio MD LAB BLOOD ORDERABLES Final Resul t Performing Organization Address [facility] Co de Phone Number [facility] [address] [place] [address] * (ABNORMAL) Kt/V Natural Log, URR (12/11/2024 3:00 AM EDT) Only the most recent of5 resultswithin the time period is included. [facility] Treatment Time 234 min [facility] Pre-Weight, lb 65.3 kg [facility] Post-Weight, lb 63.5 kg [facility] Ultrafiltration Rate 7 <=13 mL/kg/hr [facility] Comment: Recommend achieving Ultrafiltration Rate (UFR) <=10 mL/kg/hr References: Leslie MORA et al. Kidney Int. 2010; 79(2):250-257 BUN Post Dialysis 8 7 - 25 mg/dL [facility] BUN 39(H) 7 - 25 mg/dL [facility] UREA REDUCTION RATIO (%) 79 >=65 % [facility] Kt/V Natural Log 1.84 >=1.2 [facility] 12/11/2024 3:00 AM EDT 12/13/2024 3:20 PM EDT us Saeed Silverio MD LAB [id number] ICITED RESULTS Final Result Performing Organization Address City/[facility] Co de Phone Number [facility] [address] [place] [address] * (ABNORMAL) Calcium Phosphorus Product, Adjusted (12/11/2024 3:00 AM EDT) Only the most recent of3 resultswithin the time period is included. Albumin 4.0 3.6 - 5.4 g/dL [facility] Calcium 7.9(L) 8.6 - 10.3 mg/dL [facility] Phosphorus, Serum 8.2(H) 2.5 - 5.0 mg/dL [facility] Ca*PO4 64.8(A) <55.0 mg2/dL2 [facility] Calcium, Adjusted Total 7.9(L) 8.6 - 10.3 mg/dL [facility] CA*PO4 CORRCTD 64.8(A) <55.0 mg2/dL2 [facility] 12/11/2024 3:00 AM EDT 12/13/2024 3:44 PM EDT us Saeed Silverio MD LAB [id number] ICITED RESULTS Final Result Performing Organization Address [facility]/ZIP Co de Phone Number [facility] [address] [place] [address] * BUN/CREATININE RATIO (12/11/2024 3:00 AM EDT) Only the most recent of3 resultswithin the time period is included. BUN/Creatinine Ratio 4.0 <=23.0 [facility] 12/11/2024 3:00 AM EDT 12/13/2024 3:44 PM EDT us Saeed Silverio MD LAB [id number] ICITED RESULTS Final Result Performing Organization Address City/[facility]/ZIP Co de Phone Number [facility] [address] [place] [address] * (ABNORMAL) TSAT (12/11/2024 3:00 AM EDT) Only the most recent of3 resultswithin the time period is included. Iron 32(L) 65 - 175 ug/dL [facility] Transferrin 124(L) 215 - 365 mg/dL [facility] TIBC 174(L) 211 - 406 ug/dL [facility] Iron Saturation (TSat) 18(L) 22 - 52 % [facility] 12/11/2024 3:00 AM EDT 12/13/2024 3:44 PM EDT Saeed Silverio MD LAB BLOOD ORDERABLES Final Resul t Performing Organization Address City/[facility]/ZIP Co de Phone Number [facility] [address] [place] [address] * (ABNORMAL) CBC and Differential (12/11/2024 3:00 AM EDT) Only the most recent of3 resultswithin the time period is included. DIFFERENTIAL MANUAL, 2 Not Indicated [facility] White Blood Cells 6.4 4.2 - 9.1 K/uL [facility] RBC 3.21(L) 4.63 - 6.08 M/uL [facility] Hgb 9.3(L) 13.7 - 17.5 g/dL [facility] Hemoglobin x 3 27.9(L) 41.1 - 52.5 g/dL [facility] Hematocrit 30.1(L) 40.1 - 51.0 % [facility] MCV 93.8(H) 79.0 - 92.2 fL [facility] MCH 29.0 25.7 - 32.2 pg [facility] MCHC 30.9(L) 32.3 - 36.5 g/dL [facility] RDW 17.5(H) 11.6 - 14.4 % [facility] Platelets 181 163 - 337 K/uL [facility] Neutrophils Relative 51.5 34.0 - 67.9 % [facility] Lymphocytes Relative 30.6 21.8 - 53.1 % [facility] Monocytes 13.8(H) 5.3 - 12.2 % [facility] Eosinophils Relative 3.0 0.8 - 7.0 % [facility] Basophils Relative 0.8 0.2 - 1.2 % [facility] Immature Granulocytes 0.3 0.0 - 1.0 % [facility] 12/11/2024 3:00 AM EDT 12/13/2024 3:27 PM EDT us Saeed Silverio MD LAB BLOOD ORDERABLES Final Resul t Performing Organization Address City/[facility]/ZIP Co de Phone Number [facility] [address] [place] [address] * ALT (12/11/2024 3:00 AM EDT) Only the most recent of3 resultswithin the time period is included. ALT (SGPT) 10 10 - 49 U/L [facility] 12/11/2024 3:00 AM EDT 12/13/2024 3:44 PM EDT us Saeed Silverio MD LAB BLOOD ORDERABLES Final Resul t Performing Organization Address [facility] Co de Phone Number [facility] [address] [place] [address] * AST (12/11/2024 3:00 AM EDT) Only the most recent of3 resultswithin the time period is included. AST (SGOT) 15 <34 U/L [facility] 12/11/2024 3:00 AM EDT 12/13/2024 3:44 PM EDT us Saeed Silverio MD LAB BLOOD ORDERABLES Final Resul t Performing Organization Address [facility] de Phone Number [facility] [address] [place] [address] * Protein, total (12/11/2024 3:00 AM EDT) Only the most recent of3 resultswithin the time period is included. Total Protein 7.1 6.4 - 8.9 g/dL [facility] 12/11/2024 3:00 AM EDT 12/13/2024 3:44 PM EDT us Saeed Silverio MD LAB BLOOD ORDERABLES Final Resul t Performing Organization Address [facility] Co de Phone Number [facility] [address] [place] [address] * (ABNORMAL) Alkaline phosphatase (12/11/2024 3:00 AM EDT) Only the most recent of3 resultswithin the time period is included. Alkaline Phosphatase 150(H) 46 - 116 U/L [facility] 12/11/2024 3:00 AM EDT 12/13/2024 3:44 PM EDT us Saeed Silverio MD LAB BLOOD ORDERABLES Final Resul t Performing Organization Address [facility] Co de Phone Number [facility] [address] [place] [address] * Magnesium (12/11/2024 3:00 AM EDT) Only the most recent of3 resultswithin the time period is included. Magnesium 2.1 1.9 - 2.7 mg/dL [facility] 12/11/2024 3:00 AM EDT 12/13/2024 3:44 PM EDT us Saeed Silverio MD LAB BLOOD ORDERABLES Final Resul t Performing Organization Address [facility] de Phone Number [facility] [address] [place] [address] * (ABNORMAL) Lactate dehydrogenase (12/11/2024 3:00 AM EDT) Only the most recent of3 resultswithin the time period is included. LDH 370(H) 120 - 246 U/L [facility] 12/11/2024 3:00 AM EDT 12/13/2024 3:44 PM EDT us Saeed Silverio MD LAB BLOOD ORDERABLES Final Resul t Performing Organization Address [facility] de Phone Number [facility] [address] [place] [address] * (ABNORMAL) Glucose, random (12/11/2024 3:00 AM EDT) Only the most recent of3 resultswithin the time period is included. Glucose 145(H) 70 - 99 mg/dL [facility] Comment: ADA guidelines outline the following fasting glucose ranges: Normal: <100 Prediabetes: 100-125 Diabetes: >125 12/11/2024 3:00 AM EDT 12/13/2024 3:44 PM EDT us Saeed Silverio MD LAB BLOOD ORDERABLES Final Resul t Performing Organization Address [facility] Co de Phone Number [facility] [address] [place] [address] * (ABNORMAL) Ferritin (12/11/2024 3:00 AM EDT) Only the most recent of3 resultswithin the time period is included. Ferritin 1,003(H) 22 - 322 ng/mL [facility] 12/11/2024 3:00 AM EDT 12/13/2024 3:44 PM EDT us Saeed Silverio MD LAB BLOOD ORDERABLES Final Resul t Performing Organization Address [facility] de Phone Number [facility] [address] [place] [address] * (ABNORMAL) Creatinine, serum (12/11/2024 3:00 AM EDT) Only the most recent of3 resultswithin the time period is included. Creatinine 9.86(H) 0.70 - 1.30 mg/dL [facility] 12/11/2024 3:00 AM EDT 12/13/2024 3:44 PM EDT us Saeed Silverio MD LAB BLOOD ORDERABLES Final Resul t Performing Organization Address [facility] de Phone Number [facility] [address] [place] [address] * Bilirubin, total (12/11/2024 3:00 AM EDT) Only the most recent of3 resultswithin the time period is included. Total Bilirubin 0.3 0.3 - 1.2 mg/dL [facility] 12/11/2024 3:00 AM EDT 12/13/2024 3:44 PM EDT us Saeed Silverio MD LAB BLOOD ORDERABLES Final Resul t Performing Organization Address [facility] Co de Phone Number [facility] [address] [place] [address] * (ABNORMAL) Electrolyte panel (12/11/2024 3:00 AM EDT) Only the most recent of3 resultswithin the time period is included. Sodium 143 136 - 145 mEq/L [facility] Potassium 4.0 3.4 - 5.0 mEq/L [facility] Chloride 98 98 - 107 mEq/L [facility] Bicarbonate (CO2) 28 21 - 31 mEq/L [facility] Anion Gap 17(H) 3 - 14 mEq/L [facility] 12/11/2024 3:00 AM EDT 12/13/2024 3:44 PM EDT us Saeed Silverio MD LAB BLOOD ORDERABLES Final Resul t Performing Organization Address City/[facility] Co de Phone Number [facility] [address] [place] [address] * Vitamin D 25 Hydroxy (11/13/2024 3:00 AM EDT) Pathologist [facility] Vitamin D, 25-Hydroxy 46 30 - 100 ng/mL [facility] Comment: Status Adult Pediatric Deficient: <20 <15 Insufficient: 20-29 15-19 Sufficient: 30-100 20-100 11/13/2024 3:00 AM EDT 11/14/2024 2:16 PM EDT us Saeed Silverio MD LAB BLOOD ORDERABLES Final Resul t Performing Organization Address [facility] Co de Phone Number [facility] [address] [place] [address] * PTH, Intact (11/06/2024 3:00 AM EDT) Only the most recent of2 resultswithin the time period is included. Pathologist [facility] PTH, Intact 350 160 - 721 pg/mL [facility] Comment: Suggested (KDIGO) ESRD maintenance range is two to nine times the upper normal limit (80.1 pg/mL) for the laboratory. 11/06/2024 3:00 AM EDT 11/07/2024 12:35 PM EDT us Saeed Silverio MD LAB BLOOD ORDERABLES Final Resul t Performing Organization Address [facility] de Phone Number [facility] [address] [place] [address] * (ABNORMAL) Hemoglobin A1c (11/06/2024 3:00 AM EDT) Hemoglobin A1C 5.7(H) <5.7 % [facility] Comment: Methodology: Enzymatic Normal: <5.7% Prediabetes: 5.7-6.4% Diabetes: >6.4% Diabetic Glucose Control Evaluation: Therapeutic action suggested at >8.0% ADA recommends a glycemic goal of <7.0% 11/06/2024 3:00 AM EDT 11/07/2024 12:47 PM EDT us Saeed Silverio MD LAB BLOOD ORDERABLES Final Resul t Performing Organization Address [facility] de Phone Number [facility] [address] [place] [address] * (ABNORMAL) Lipid panel (11/06/2024 3:00 AM EDT) Cholesterol 109 mg/dL [facility] Comment: Optimal: <200 Borderline: 200-239 High Risk: >239 Triglycerides 83 mg/dL [facility] Comment: Optimal: <150 Borderline: 150-200 High Risk: >200 HDL 41(L) mg/dL [facility] Comment: Optimal: >59 Borderline: 40-59 High Risk: <40 LDL-Calc 51 mg/dL [facility] Comment: Optimal: <100 Borderline: 100-159 High Risk: >159 VLDL Cholesterol Butch 17 mg/dL [facility] Comment: Optimal: <30 Borderline: 30-40 High Risk: >40 Chol/HDL Ratio 2.7 [facility] Comment: Optimal: <3.3 High Risk: >6.2 11/06/2024 3:00 AM EDT 11/07/2024 12:35 PM EDT us Saeed Silverio MD LAB BLOOD ORDERABLES Final Resul t Performing Organization Address [facility] de Phone Number [facility] [address] [place] [address] * Hepatitis B Surface Ag w/Reflex Confirmation (10/09/2024 3:00 AM EDT) Hep B Surface Antigen Negative Negative [facility] 10/09/2024 3:00 AM EDT 10/10/2024 1:25 PM EDT us Saeed Silverio MD LAB BLOOD ORDERABLES Final Resul t Performing Organization Address [facility] Co de Phone Number [facility] [address] [place] [address] * Hepatitis B Surface Antibody (10/09/2024 3:00 AM EDT) Hep B Surface Antibody 102 mIU/mL [facility] Comment: Interpretation: <10: No Immunity >=10: Probable Immunity 10/09/2024 3:00 AM EDT 10/10/2024 1:25 PM EDT us Saeed Silverio MD LAB BLOOD ORDERABLES Final Resul t Performing Organization Address [facility] Co de Phone Number [facility] [address] [place] [address] from Last 3 Months Insurance Medicaid Medicaid Care Teams Consumer Credit Counselor Relationship Specialty Start Date End Date Jesus Daniel MD [address] [place] [id number] PCP - General Internal Medicine 08/14/23
--- OUTSIDE RECORDS SUMMARY | 2025-01-07 10:18 | XMS_ITS | Encounter Summary ---
Author Organization [facility] Address [address] [facility] [address] [place] [address] Phone Care Team Providers Care Ship Wirer Name Role Phone Jesus Daniel MD Primary Care Provider [phone] Encounter Details Date Type Department Care Team (Late st Contact Info) Description 11/03/2023 Telephone [facility] [address] [facility] [address] [place] [phone] January Epstein MD [address] [facility] [address] [place] [phone] Social History Tobacco Use Types Packs/Day Years [...] encounter Miscellaneous Notes * Telephone Encounter - January Epsteni MD - 11/03/2023 3:45 PM EDT Nurse from [facility] visited patient today. BP elevated 190 systolic but prior to this, all week, his BP has been 118-130 systolic Patient asymptomatic. Advised to recheck in one hour If BP remains elevated advice to go to the ER documented in this encounter Plan of Treatment Not on file documented as of this encounter Visit Diagnoses Not on filedocumented in this encounter Care Teams Ship Wirer Relationship Specialty Start Date End Date Jesus Daniel MD [address] [place] [id number] PCP - General Internal Medicine 08/14/23 documented as of this encounter
[2025-01-07 10:20] LABS: MANUAL DIFF FLAG NO
[2025-01-07 10:23] LABS: Hematocrit 32.3 % (42.0-52.0); Hemoglobin 10.4 g/dl (14.0-18.0); Imm Gran Abs Auto 0.03 X10*3/uL (0.00-0.03); Imm Gran Pct Auto 0.3 % (0.0-0.4); Lymphocytes Absolute Auto 0.9 X10*3/uL (1.2-4.9); Mean Corpuscular HGB Conc 32.2 g/dl (31.0-36.0); Mean Corpuscular Hemoglobin 30.1 pg (27.0-33.0); Mean Corpuscular Volume 93.6 fL (80.0-98.0); NRBC Abs Auto 0.000 X10*3/uL (0.0-0.012); NRBC Pct Auto 0.0 /100WBC (0.0-0.2); Platelet Count 158 X10*3/uL (160-400); Red Blood Count 3.45 X10*6/uL (4.60-5.80); White Blood Count 8.7 X10*3/uL (4.8-10.8)
[2025-01-07 10:25] VITALS: BP 189/104; PULSE 72; RESP 16; TEMP 36.7; O2SAT 95
[2025-01-07 10:48] LABS: Magnesium 2.2 mg/dL (1.6-2.6)
[2025-01-07 10:51] LABS: Alanine Aminotransferase 34 U/L (0-40); Albumin Level 4.9 g/dL (3.5-5.0); Alkaline Phosphatase 211 U/L (39-117); Anion Gap 22 (12-20); Aspartate Amino Transferase 37 U/L (5-37); Blood Urea Nitrogen 41 mg/dL (9-16); Calcium 9.3 mg/dL (8.4-10.2); Carbon Dioxide 30 mmol/L (22-29); Chloride 98 mmol/L (96-108); Creatinine Clr Calc Pharmacy 11.5; Estimated Glomerular Filt Rate 8; Potassium 4.1 mmol/L (3.3-5.1); Sodium 146 mmol/L (135-145); Total Protein 8.6 g/dL (6.5-8.0)
[2025-01-07 10:59] LABS: Lipase 352 U/L (8-78)
--- NOTE | 2025-01-07 11:00 | PC.NURSE ---
patient refused ivp zofran
[2025-01-07 12:07] VITALS: BP 165/86; PULSE 73; RESP 16; TEMP 36.7; O2SAT 93
[2025-01-07 12:58] VITALS: BP 165/86; PULSE 73; RESP 16; TEMP 36.7; O2SAT 93
== END 2025-01-07 12:59 | disposition home or self-care (01) ==
PROVIDERS: Physician Assistant Medical; Emergency Provider Emergency Medicine; PCP Internal Medicine
DX: R10.9 Unspecified abdominal pain (principal); I12.0 Hypertensive chronic kidney disease with stage 5 chronic kidney disease or end stage renal disease; E10.22 Type 1 diabetes mellitus with diabetic chronic kidney disease; N18.6 End stage renal disease; Z99.2 Dependence on renal dialysis
CPT/HCPCS: 36415; 74176; 80048; 80076; 80307; 83690; 83735; 85025; 93005; 96372; 96374; 99285; J1171

== ENCOUNTER → 2025-01-07 09:08 | Outpatient (BNV) | payer OTHER, SELFPAY | PROVIDERS: Emergency Provider Emergency Medicine; PCP Internal Medicine; Visit Provider Internal Medicine Cardiovascular Disease | DX: R94.31 Abnormal electrocardiogram [ECG] [EKG] (principal); R10.9 Unspecified abdominal pain | CPT/HCPCS: 93010 ==

== ENCOUNTER → 2025-01-07 09:50 | Outpatient (BNV) | payer OTHER, SELFPAY | PROVIDERS: Emergency Provider Emergency Medicine; PCP Internal Medicine; Visit Provider Radiology Diagnostic Radiology | DX: R10.9 Unspecified abdominal pain (principal) | CPT/HCPCS: 74176 ==